=== PATIENT | female | born 1985 | race Caucasian/White ===

== ENCOUNTER → 2018-01-06 09:43 | Outpatient (CLI) | payer MEDICAID, SELFPAY ==
[2018-01-06 09:46] LABS: Microscopic, Urine URINE MICROSCOPIC (MICROSCOPIC)
[2018-01-06 10:20] LABS: Appearance,Urine CLEAR (Clear); Bilirubin,Urine Negative (Negative); Blood, Urine Negative (Negative); Color,Urine YELLOW (Yellow); Glucose,Urine (UA) Negative (Negative); Ketones,Urine Negative (Negative); Leukocyte Esterase,Urine Negative (Negative); Nitrate,Urine Negative (Negative); Protein,Urine Negative (Negative); Specific Gravity, Urine >= 1.030 (1.005-1.030); Urobilinogen,Urine 0.2 EU/dl (0.2)
[2018-01-06 10:22] LABS: Urine Pregnancy, HCG Qual. Negative (Negative)
[2018-01-06 10:27] LABS: Bacteria,Urine 1+ /lpf
[2018-01-06 10:31] LABS: Basophils % 0.4 % (0.1-2.0); Eosinophils # 0.1 K/mm3 (0.0-0.4); Eosinophils % 1.5 % (0.1-12.0); Hematocrit 33.3 % (37.0-47.0); Hemoglobin 11.1 g/dL (12.2-16.2); Lymphocytes # 1.6 K/mm3 (0.7-4.5); Lymphocytes % 28.7 K/mm3 (10-50); Mean Corpuscular HGB Conc 33.4 g/dL (31.8-35.4); Mean Corpuscular Hemoglobin 28.8 pg (27.0-31.2); Mean Corpuscular Volume 86.3 fl (81-99); Mean Platelet Volume 7.9 fl (7.4-10.4); Monocytes # 0.3 K/mm3 (0.1-1.0); Monocytes % 4.6 % (1.7-9.3); Neutrophils # 3.5 K/mm3 (1.8-7.8); Neutrophils % 64.8 % (37.0-80.0); Platelet Count 209 K/mm3 (142-424); Red Blood Count 3.86 M/mm3 (4.20-5.40); Red Cell Distribution Width 12.4 % (11.5-17.5); White Blood Count 5.4 K/mm3 (4.8-10.8)
[2018-01-06 12:12] LABS: Alanine Aminotransferase 20 U/L (12-78); Albumin Level 3.7 gm/dL (3.4-5.0); Albumin/Globulin Ratio 1.1 (1.1-1.8); Alkaline Phosphatase 77 U/L (46-116); Aspartate Amino Transferase 16 U/L (15-37); Bilirubin,Total 0.3 mg/dL (0.2-1.0); Blood Urea Nitrogen 17 mg/dL (7-18); Calcium 8.9 mg/dL (8.5-10.1); Carbon Dioxide 29 mmol/L (21.0-32.0); Chloride 105 mmol/L (98-107); Creatinine,Serum 1.05 mg/dL (0.55-1.02); Estimated Glomerular Filt Rate 62 ml/min (>60); GFR (African American) 74 ML/MIN (>60); Globulin 3.3 gm/dl (1.3-3.2); Glucose 77 mg/dL (74-106); Sodium 141 mmol/L (136-145)
== END ==
PROVIDERS: Visit Provider Obstetrics & Gynecology
DX: Z01.818 Encounter for other preprocedural examination (principal); R10.2 Pelvic and perineal pain; N73.6 Female pelvic peritoneal adhesions (postinfective)
CPT/HCPCS: 36415; 80053; 81001; 81025; 85025

== ENCOUNTER → 2018-04-14 13:43 | Outpatient (CLI) | payer MEDICAID, SELFPAY ==
[2018-04-14 14:22] LABS: Activated Partial Thrombo Time 27.8 seconds (23.6-34.0)
== END ==
PROVIDERS: PCP Family Medicine; Visit Provider Family Medicine
DX: R23.8 Other skin changes (principal)
CPT/HCPCS: 36415; 85730

== ENCOUNTER → 2020-08-22 15:35 | Outpatient (CLI) | payer OTHER, SELFPAY ==
[2020-08-22 16:21] LABS: Basophils # 0.1 K/mm3 (0-0.2); Basophils % 0.9 % (0.1-2.0); Eosinophils # 0.1 K/mm3 (0.0-0.4); Eosinophils % 1.1 % (0.1-12.0); Hematocrit 37.3 % (37.0-47.0); Hemoglobin 12.7 g/dL (12.2-16.2); Lymphocytes % 37.3 % (10-50); Mean Corpuscular HGB Conc 34.2 g/dL (31.8-35.4); Mean Corpuscular Hemoglobin 29.7 pg (27.0-31.2); Mean Corpuscular Volume 86.9 fl (81-99); Mean Platelet Volume 7.7 fl (7.4-10.4); Monocytes # 0.2 K/mm3 (0.1-1.0); Neutrophils % 56.7 % (37.0-80.0); Platelet Count 292 K/mm3 (142-424); Red Cell Distribution Width 13.5 % (11.5-17.5); White Blood Count 5.2 K/mm3 (4.8-10.8)
[2020-08-22 17:50] LABS: Strep Scrn Group A (Rapid) Negative (Negative)
== END ==
PROVIDERS: PCP Family Medicine; Visit Provider Nurse Practitioner Family
DX: J02.9 Acute pharyngitis, unspecified; Z20.822 Contact with and (suspected) exposure to COVID-19
CPT/HCPCS: 85025; 87430; U0003

== ENCOUNTER → 2020-09-26 11:40 | Outpatient (CLI) | payer OTHER, SELFPAY ==
[2020-09-26 12:41] LABS: Basophils % 0.6 % (0.1-2.0); Eosinophils # 0.1 K/mm3 (0.0-0.4); Eosinophils % 1.4 % (0.1-12.0); Hematocrit 36.3 % (37.0-47.0); Hemoglobin 11.7 g/dL (12.2-16.2); Lymphocytes # 1.4 K/mm3 (0.7-4.5); Lymphocytes % 31.7 % (10-50); Mean Corpuscular HGB Conc 32.1 g/dL (31.8-35.4); Mean Corpuscular Hemoglobin 28.3 pg (27.0-31.2); Mean Corpuscular Volume 87.9 fl (81-99); Mean Platelet Volume 7.7 fl (7.4-10.4); Monocytes # 0.2 K/mm3 (0.1-1.0); Monocytes % 4.7 % (1.7-9.3); Neutrophils # 2.8 K/mm3 (1.8-7.8); Neutrophils % 61.6 % (37.0-80.0); Platelet Count 264 K/mm3 (142-424); Red Blood Count 4.13 M/mm3 (4.20-5.40); Red Cell Distribution Width 12.8 % (11.5-17.5); White Blood Count 4.6 K/mm3 (4.8-10.8)
[2020-09-26 14:40] LABS: Strep Scrn Group A (Rapid) Negative (Negative)
== END ==
PROVIDERS: PCP Family Medicine; Visit Provider Nurse Practitioner Family
DX: Z20.822 Contact with and (suspected) exposure to COVID-19 (principal)
CPT/HCPCS: 36415; 85025; 87430; U0003

== ENCOUNTER → 2020-12-05 11:03 | Outpatient (CLI) | payer OTHER, SELFPAY ==
--- NOTE | 2020-12-05 | XR_ITS ---
PROCEDURE: XR ANKLE LT MIN 3V CLINICAL INDICATION: ANKLE PAIN COMPARISON: No exams were available for comparison FINDINGS: No fracture or dislocation. No lytic or blastic change. There is normal mineralization. The joint spaces are well-preserved. No significant degenerative/arthritic changes. No erosive changes evident. Other findings:None. IMPRESSION: No acute findings. Dictated by: José Luis Lai MD 12/05/2020 17:41 José Luis Lai MD in [place] 12/05/2020 17:41
--- NOTE | 2020-12-05 | XR_ITS ---
PROCEDURE: XR FOOT LT MIN 3V CLINICAL INDICATION: FOOT PAIN COMPARISON: CR FTL3 FOOT-LT-3 VIEWS from 01/09/2014 FINDINGS: No fracture or dislocation. No lytic or blastic change. There is normal mineralization. The joint spaces are well-preserved. No significant degenerative/arthritic changes. No erosive changes evident. Other findings:None. IMPRESSION: No acute findings. Dictated by: José Luis Lai MD 12/05/2020 17:37 José Luis Lai MD in [place] 12/05/2020 17:37
== END ==
PROVIDERS: PCP Nurse Practitioner Family; Visit Provider Nurse Practitioner Family
DX: M79.672 Pain in left foot (principal); M25.572 Pain in left ankle and joints of left foot
CPT/HCPCS: 73610; 73630

== ENCOUNTER → 2021-01-23 12:11 | Outpatient (CLI) | payer OTHER, SELFPAY ==
[2021-01-23 12:49] LABS: Basophils % 0.6 % (0.1-2.0); Eosinophils # 0.1 K/mm3 (0.0-0.4); Eosinophils % 1.4 % (0.1-12.0); Hematocrit 35.5 % (37.0-47.0); Hemoglobin 12.2 g/dL (12.2-16.2); Lymphocytes # 1.7 K/mm3 (0.7-4.5); Lymphocytes % 30.2 % (10-50); Mean Corpuscular HGB Conc 34.4 g/dL (31.8-35.4); Mean Corpuscular Hemoglobin 29.1 pg (27.0-31.2); Mean Corpuscular Volume 84.6 fl (81-99); Mean Platelet Volume 8.3 fl (7.4-10.4); Monocytes # 0.2 K/mm3 (0.1-1.0); Monocytes % 3.7 % (1.7-9.3); Neutrophils # 3.6 K/mm3 (1.8-7.8); Neutrophils % 64.2 % (37.0-80.0); Platelet Count 249 K/mm3 (142-424); Red Cell Distribution Width 12.7 % (11.5-17.5); White Blood Count 5.6 K/mm3 (4.8-10.8)
[2021-01-23 12:59] LABS: Strep Scrn Group A (Rapid) Negative (Negative)
== END ==
PROVIDERS: PCP Family Medicine; Visit Provider Family Medicine
DX: Z20.822 Contact with and (suspected) exposure to COVID-19 (principal); J02.9 Acute pharyngitis, unspecified
CPT/HCPCS: 36415; 85025; 87430; U0003

== ENCOUNTER → 2021-02-23 15:38 | Outpatient (CLI) | payer OTHER, SELFPAY ==
[2021-02-23 16:15] LABS: Adenovirus,PCR Not Detected (NotDetected); Bordetella Pertussis Not Detected (NotDetected); Chlamydophila Pneumoniae, PCR Not Detected (NotDetected); Coronavirus 19, PCR Not Detected (NotDetected); Coronavirus 229E Not Detected (NotDetected); Coronavirus NL63 Not Detected (NotDetected); Coronavirus OC43 Not Detected (NotDetected); Coronovirus HKU1,PCR Not Detected (NotDetected); Human Metapneumovirus Not Detected (NotDetected); Influenza A, PCR Not Detected (NotDetected); Influenza AH1, 2009 Not Detected (NotDetected); Influenza AH1, PCR Not Detected (NotDetected); Influenza AH3,PCR Not Detected (NotDetected); Influenza B, PCR Not Detected (NotDetected); Mycoplasma Pneumoniae, PCR Not Detected (NotDetected); Parainfluenza 1, PCR Not Detected (NotDetected); Parainfluenza 2, PCR Not Detected (NotDetected); Parainfluenza 3, PCR Not Detected (NotDetected); Parainfluenza 4, PCR Not Detected (NotDetected); Respiratory Syncytial Virus Not Detected (NotDetected); Rhinovirus/Enterovirus Not Detected (NotDetected)
[2021-02-23 16:21] LABS: Basophils % 0.2 % (0.1-2.0); Eosinophils # 0.1 K/mm3 (0.0-0.4); Eosinophils % 1.9 % (0.1-12.0); Hematocrit 35.5 % (37.0-47.0); Hemoglobin 12.2 g/dL (12.2-16.2); Lymphocytes # 1.4 K/mm3 (0.7-4.5); Lymphocytes % 27.1 % (10-50); Mean Corpuscular HGB Conc 34.5 g/dL (31.8-35.4); Mean Corpuscular Hemoglobin 28.8 pg (27.0-31.2); Mean Corpuscular Volume 83.5 fl (81-99); Mean Platelet Volume 7.9 fl (7.4-10.4); Monocytes # 0.2 K/mm3 (0.1-1.0); Monocytes % 4.5 % (1.7-9.3); Neutrophils # 3.5 K/mm3 (1.8-7.8); Neutrophils % 66.2 % (37.0-80.0); Platelet Count 239 K/mm3 (142-424); Red Blood Count 4.25 M/mm3 (4.20-5.40); Red Cell Distribution Width 12.9 % (11.5-17.5); White Blood Count 5.3 K/mm3 (4.8-10.8)
== END ==
PROVIDERS: PCP Physician Assistant; Visit Provider Physician Assistant
DX: Z20.822 Contact with and (suspected) exposure to COVID-19 (principal)
CPT/HCPCS: 85025; 87581; 87633; 87798

== ENCOUNTER → 2021-03-01 11:30 | Outpatient (CLI) | payer OTHER, SELFPAY ==
--- NOTE | 2021-03-01 11:36 | XR_ITS ---
PROCEDURE: XR CHEST PORTABLE CLINICAL HISTORY: COVID OUTPATIENT COMPARISON: No exams were available for comparison FINDINGS: The cardiomediastinal silhouette and pulmonary vascularity are within normal limits. The lungs are clear without infiltrates, suspicious nodules, or pleural effusions. No acute bony abnormalities. IMPRESSION: No acute findings. Dictated by: José Luis Lai MD 03/01/2021 12:22 José Luis Lai MD in [place] 03/01/2021 12:22
[2021-03-01 12:24] LABS: Basophils % 0.7 % (0.1-2.0); Eosinophils # 0.1 K/mm3 (0.0-0.4); Eosinophils % 1.6 % (0.1-12.0); Hematocrit 34.3 % (37.0-47.0); Lymphocytes # 1.6 K/mm3 (0.7-4.5); Lymphocytes % 28.4 % (10-50); Mean Corpuscular HGB Conc 35.1 g/dL (31.8-35.4); Mean Corpuscular Hemoglobin 28.8 pg (27.0-31.2); Mean Platelet Volume 7.8 fl (7.4-10.4); Monocytes # 0.2 K/mm3 (0.1-1.0); Monocytes % 3.1 % (1.7-9.3); Neutrophils # 3.7 K/mm3 (1.8-7.8); Neutrophils % 66.1 % (37.0-80.0); Platelet Count 246 K/mm3 (142-424); Red Blood Count 4.18 M/mm3 (4.20-5.40); Red Cell Distribution Width 12.9 % (11.5-17.5); White Blood Count 5.6 K/mm3 (4.8-10.8)
--- NOTE | 2021-03-01 13:03 | PC.NURSE ---
ER REGISTRATION CALLED RESPIRATORY TO COME AND CHECK PT'S O2 SATS. PTS PULSE OX WAS READING 100% AT THIS TIME.
== END ==
PROVIDERS: PCP Physician Assistant; Visit Provider Physician Assistant
DX: Z20.822 Contact with and (suspected) exposure to COVID-19 (principal)
CPT/HCPCS: 36415; 71045; 85025; U0003

== ENCOUNTER → 2021-04-13 15:33 | Outpatient (CLI) | payer OTHER, SELFPAY ==
[2021-04-13 17:06] LABS: Basophils % 0.7 % (0.1-2.0); Eosinophils # 0.1 K/mm3 (0.0-0.4); Hematocrit 37.1 % (37.0-47.0); Hemoglobin 12.1 g/dL (12.2-16.2); Lymphocytes # 1.4 K/mm3 (0.7-4.5); Lymphocytes % 29.1 % (10-50); Mean Corpuscular HGB Conc 32.6 g/dL (31.8-35.4); Mean Corpuscular Hemoglobin 29.3 pg (27.0-31.2); Mean Corpuscular Volume 90.1 fl (81-99); Mean Platelet Volume 8.3 fl (7.4-10.4); Monocytes # 0.3 K/mm3 (0.1-1.0); Monocytes % 5.9 % (1.7-9.3); Neutrophils # 3.1 K/mm3 (1.8-7.8); Neutrophils % 63.3 % (37.0-80.0); Platelet Count 258 K/mm3 (142-424); Red Blood Count 4.11 M/mm3 (4.20-5.40); Red Cell Distribution Width 12.9 % (11.5-17.5); White Blood Count 4.9 K/mm3 (4.8-10.8)
[2021-04-13 18:14] LABS: Strep Scrn Group A (Rapid) Negative (Negative)
== END ==
PROVIDERS: PCP Family Medicine; Visit Provider Physician Assistant
DX: Z20.822 Contact with and (suspected) exposure to COVID-19 (principal); J02.9 Acute pharyngitis, unspecified
CPT/HCPCS: 85025; 87430; U0003

== ENCOUNTER → 2021-08-28 11:43 | Outpatient (CLI) | payer OTHER, SELFPAY ==
[2021-08-28 12:17] LABS: Adenovirus,PCR Not Detected (NotDetected); Bordetella Pertussis Not Detected (NotDetected); Chlamydophila Pneumoniae, PCR Not Detected (NotDetected); Coronavirus 19, PCR Not Detected (NotDetected); Coronavirus 229E Not Detected (NotDetected); Coronavirus NL63 Not Detected (NotDetected); Coronavirus OC43 Not Detected (NotDetected); Coronovirus HKU1,PCR Not Detected (NotDetected); Human Metapneumovirus Not Detected (NotDetected); Influenza A, PCR Not Detected (NotDetected); Influenza AH1, 2009 Not Detected (NotDetected); Influenza AH1, PCR Not Detected (NotDetected); Influenza AH3,PCR Not Detected (NotDetected); Influenza B, PCR Not Detected (NotDetected); Mycoplasma Pneumoniae, PCR Not Detected (NotDetected); Parainfluenza 1, PCR Not Detected (NotDetected); Parainfluenza 2, PCR Not Detected (NotDetected); Parainfluenza 3, PCR Not Detected (NotDetected); Parainfluenza 4, PCR Not Detected (NotDetected); Respiratory Syncytial Virus Not Detected (NotDetected); Rhinovirus/Enterovirus Not Detected (NotDetected)
[2021-08-28 12:25] LABS: Basophils # 0.1 K/mm3 (0-0.2); Basophils % 1.4 % (0.1-2.0); Eosinophils # 0.1 K/mm3 (0.0-0.4); Eosinophils % 1.4 % (0.1-12.0); Hematocrit 36.5 % (37.0-47.0); Hemoglobin 12.2 g/dL (12.2-16.2); Lymphocytes # 1.6 K/mm3 (0.7-4.5); Lymphocytes % 28.7 % (10-50); Mean Corpuscular HGB Conc 33.4 g/dL (31.8-35.4); Mean Corpuscular Hemoglobin 29.4 pg (27.0-31.2); Mean Corpuscular Volume 88.2 fl (81-99); Mean Platelet Volume 8.5 fl (7.4-10.4); Monocytes # 0.2 K/mm3 (0.1-1.0); Neutrophils # 3.5 K/mm3 (1.8-7.8); Neutrophils % 64.5 % (37.0-80.0); Platelet Count 288 K/mm3 (142-424); Red Blood Count 4.14 M/mm3 (4.20-5.40); Red Cell Distribution Width 12.9 % (11.5-17.5); White Blood Count 5.5 K/mm3 (4.8-10.8)
[2021-08-28 12:57] LABS: Strep Scrn Group A (Rapid) Negative (Negative)
== END ==
PROVIDERS: PCP Nurse Practitioner Family; Visit Provider Nurse Practitioner Family
DX: Z20.822 Contact with and (suspected) exposure to COVID-19 (principal); J02.9 Acute pharyngitis, unspecified
CPT/HCPCS: 36415; 85025; 87430; 87581; 87632; 87798; C9803; U0003; U0005

== ENCOUNTER → 2021-09-06 10:26 | Outpatient (CLI) | payer OTHER, SELFPAY ==
[2021-09-06 11:07] LABS: Adenovirus,PCR Not Detected (NotDetected); Bordetella Pertussis Not Detected (NotDetected); Chlamydophila Pneumoniae, PCR Not Detected (NotDetected); Coronavirus 229E Not Detected (NotDetected); Coronavirus NL63 Not Detected (NotDetected); Coronavirus OC43 Not Detected (NotDetected); Coronovirus HKU1,PCR Not Detected (NotDetected); Human Metapneumovirus Not Detected (NotDetected); Influenza A, PCR Not Detected (NotDetected); Influenza AH1, 2009 Not Detected (NotDetected); Influenza AH1, PCR Not Detected (NotDetected); Influenza AH3,PCR Not Detected (NotDetected); Influenza B, PCR Not Detected (NotDetected); Mycoplasma Pneumoniae, PCR Not Detected (NotDetected); Parainfluenza 1, PCR Not Detected (NotDetected); Parainfluenza 2, PCR Not Detected (NotDetected); Parainfluenza 3, PCR Not Detected (NotDetected); Parainfluenza 4, PCR Not Detected (NotDetected); Respiratory Syncytial Virus Not Detected (NotDetected); Rhinovirus/Enterovirus Not Detected (NotDetected)
[2021-09-06 11:18] LABS: Basophils % 0.6 % (0.1-2.0); Eosinophils % 0.8 % (0.1-12.0); Hematocrit 35.6 % (37.0-47.0); Lymphocytes # 1.3 K/mm3 (0.7-4.5); Lymphocytes % 32.1 % (10-50); Mean Corpuscular HGB Conc 33.6 g/dL (31.8-35.4); Mean Corpuscular Hemoglobin 29.6 pg (27.0-31.2); Mean Corpuscular Volume 88.1 fl (81-99); Mean Platelet Volume 8.3 fl (7.4-10.4); Monocytes # 0.4 K/mm3 (0.1-1.0); Monocytes % 9.5 % (1.7-9.3); Neutrophils # 2.4 K/mm3 (1.8-7.8); Platelet Count 248 K/mm3 (142-424); Red Blood Count 4.05 M/mm3 (4.20-5.40); Red Cell Distribution Width 12.9 % (11.5-17.5); White Blood Count 4.2 K/mm3 (4.8-10.8)
[2021-09-06 13:14] LABS: Coronavirus 19, PCR Detected (NotDetected)
[2021-09-06 13:42] LABS: Strep Scrn Group A (Rapid) Negative (Negative)
== END ==
PROVIDERS: PCP Family Medicine; Visit Provider Nurse Practitioner Family
DX: U07.1 COVID-19 (principal)
CPT/HCPCS: 36415; 85025; 87430; 87581; 87632; 87798; C9803; U0003; U0005

== ENCOUNTER → 2022-05-18 14:07 | Outpatient (CLI) | payer OTHER, SELFPAY ==
--- NOTE | 2022-05-18 14:12 | XR_ITS ---
FINAL REPORT CLINICAL HISTORY: INJURY OF RIGHT KNEE, pain FINDINGS: 3 views of the right knee were obtained. Healing fibrous cortical defect in the distal femur. There is no acute fracture or dislocation. The joint spaces are intact. There is no soft tissue abnormality. IMPRESSION: No acute process. Reviewed, Interpreted and Dictated by Pillo Esposito MD Transcribed by Caio Jones Authenticated and [facility]
== END ==
PROVIDERS: PCP Family Medicine; Visit Provider Physician Assistant
DX: M25.561 Pain in right knee (principal); S89.91XA Unspecified injury of right lower leg, initial encounter
CPT/HCPCS: 73562

== ENCOUNTER → 2022-07-25 12:42 | Outpatient (CLI) | payer OTHER, SELFPAY ==
--- NOTE | 2022-07-25 12:43 | MR_ITS ---
FINAL REPORT CLINICAL HISTORY: knee pain right knee pain after dog running into knee in april pain when walking and gives out FINDINGS: Multiplanar MR imaging of the right knee was performed without contrast. The medial and lateral menisci are intact without evidence of meniscal tear. The anterior and posterior cruciate ligaments are intact. The medial collateral ligament and lateral ligamentous complex are intact. The patellar and quadriceps tendons are intact. There is no evidence of fracture. No focal abnormality is identified of the articular cartilage. There is a 29 mm mass in the posterior medial distal femur, favor nonossifying fibroma or other benign process. Small joint effusion is seen. The musculature is intact. No soft tissue mass or cyst is identified. 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 Reviewed, Interpreted and Dictated by Chris Eid III, MD Transcribed by Willa Jacques Authenticated and [facility]
== END ==
PROVIDERS: PCP Family Medicine; Visit Provider Orthopaedic Surgery
DX: M25.561 Pain in right knee (principal); M23.91 Unspecified internal derangement of right knee
CPT/HCPCS: 73721

== ENCOUNTER → 2022-11-21 09:41 | Outpatient (CLI) | payer OTHER, SELFPAY ==
--- NOTE | 2022-11-21 09:41 | US_ITS ---
PROCEDURE INFORMATION: Exam: US Left Breast, Complete Exam date and time: 11/21/2022 10:18 AM Age: 37 years old Clinical indication: Breast pain; Left TECHNIQUE: Imaging protocol: Complete ultrasound of all four quadrants of the left breast and the retroareolar regions, including ultrasound of the axilla when performed. COMPARISON: BL US BREAST-LT COMPLETE W/AXILLA 06/11/2016 2:22 PM FINDINGS: Breast: Sonographic images of the left breast including the retroareolar region, all 4 quadrants and the axilla do not demonstrate any solid or cystic masses. No architectural distortion or acoustical shadowing. No skin thickening or axillary adenopathy. IMPRESSION: No mammographic evidence of malignancy. Annual bilateral mammographic screening is recommended to commence at the age of 40 unless otherwise clinically indicated. ASSESSMENT: BI-RADS Category 1: Negative
== END ==
LOC: RAD 09:41
PROVIDERS: PCP Family Medicine; Visit Provider Obstetrics & Gynecology
DX: N64.4 Mastodynia (principal)
CPT/HCPCS: 76641

== ENCOUNTER → 2022-12-05 10:56 | Outpatient (CLI) | payer OTHER, SELFPAY ==
[2022-12-05 11:22] LABS: Influenza A, PCR Not Detected (NotDetected); Influenza B, PCR Not Detected (NotDetected)
[2022-12-05 13:46] LABS: Coronavirus 19, PCR Detected (NotDetected)
== END ==
PROVIDERS: PCP Family Medicine; Visit Provider Physician Assistant
DX: U07.1 COVID-19 (principal)
CPT/HCPCS: C9803; U0003; U0005

== ENCOUNTER → 2023-04-03 11:05 | Outpatient (CLI) | payer OTHER, SELFPAY ==
--- NOTE | 2023-04-03 11:10 | XR_ITS ---
FINAL REPORT CLINICAL HISTORY: INJURY FINDINGS: Right foot Three views were obtained. There is no acute fracture or dislocation. The joint spaces appear normal. No soft tissue abnormality is identified. IMPRESSION: No acute process. Reviewed, Interpreted and Dictated by Chris Eid III, MD Transcribed by Willa Jacques Authenticated and [facility]
--- NOTE | 2023-04-03 11:10 | XR_ITS ---
FINAL REPORT CLINICAL HISTORY: INJURY FINDINGS: Right ankle Three views were obtained. There is no acute fracture or dislocation. The joint spaces appear normal. No soft tissue abnormality is identified. IMPRESSION: No acute process. Reviewed, Interpreted and Dictated by Chris Eid III, MD Transcribed by Willa Jacques Authenticated and . [facility]
== END ==
PROVIDERS: PCP Family Medicine; Visit Provider Physician Assistant
DX: M79.671 Pain in right foot (principal); M25.572 Pain in left ankle and joints of left foot; S99.911A Unspecified injury of right ankle, initial encounter
CPT/HCPCS: 73610; 73630

== ENCOUNTER 2023-10-30 17:05 | Emergency (ER) | payer OTHER, SELFPAY ==
[2023-10-30 17:50] VITALS: BP 113/65; PULSE 79; RESP 18; TEMP 36.7; O2SAT 100; BMI 30.1
--- NOTE | 2023-10-30 18:07 | ED_ITS ---
Discharge Plan Disposition Patient Disposition: Home, Self-Care Condition: Good Prescriptions Prescriptions: New azithromycin [Zithromax] 250 mg tablet 250 mg PO UD DOSE PK Qty: 6 0RF Rx Instructions: Take two (2) tablets today, then one (1) tablet days #2 thru #5 benzonatate 100 mg capsule 100 mg PO TIDP PRN (Reason: Cough) Qty: 30 0RF oseltamivir [Tamiflu] 75 mg capsule 75 mg PO BID Qty: 10 0RF methylprednisolone 4 mg Tablets,Dose Pack 4 mg PO DIRECTED 6 Days Qty: 21 0RF Rx Instructions: Take 1 pack as directed for 6 days ondansetron 4 mg Tablet,Disintegrating 4 mg PO Q8H PRN (Reason: Nausea) Qty: 9 0RF No Action Breo Ellipta 100-25 mcg/dose blister with device 1 inh INHALATION DAILY albuterol sulfate [Ventolin HFA] 90 mcg/actuation HFA aerosol inhaler 1 inh INHALATION QID duloxetine 30 mg capsule,delayed release(DR/EC) 60 mg PO DAILY metoprolol succinate 50 mg tablet extended release 24 hr 50 mg PO DAILY estradiol [Estrace] 2 mg tablet 2 mg PO DAILY Qty: 30 11RF aripiprazole 10 mg tablet 10 mg PO DAILY Patient Comments: TAKE 1 TABLET BY MOUTH EVERY DAY AT BEDTIME FOR 90 DAYS Referrals Follow up/Referrals: Tonio Jenkins MD [Primary Care Provider] - See instructions Activity Restrictions/Add. Instructions Additional Instructions/Restrictions: Drink plenty of fluids. Take tylenol or ibuprofen for pain or fever. Take the medications as directed. Follow up with your regular doctor. GO TO THE ER FOR ANY WORSENING SYMPTOMS Clinical Impressions Clinical Impression: Influenza B, Pharyngitis, Exposure to strep throat Instructions Patient Instructions: Influenza, DI for Strep Throat, DI for Influenza -- Adult Discharge ED Provider: [place] Schaffer [facility] [place] HPI General Stated complaint: fever,chills, body aches Time Seen by Provider: 10/30/23 18:07 History of Present Illness Provider Complaint: She states that for the past 2 days she has had very sore throat, body aches, malaise, low grade fever, and cough. Related Data Home Medications Medication Instructions Recorded Confirmed fluticasone furoate 100 1 inh inhalation DAILY 04/17/19 10/30/22 mcg-vilanterol 25 mcg/dose inhalation powder (Breo Ellipta) albuterol sulfate 90 mcg/actuation 1 inh inhalation QID 06/16/20 10/30/23 aerosol inhaler (Ventolin HFA) duloxetine 30 mg capsule,delayed 60 mg PO DAILY 10/30/22 10/30/23 release metoprolol succinate 50 mg 50 mg PO DAILY 10/30/22 10/30/23 tablet,extended release 24 hr aripiprazole 10 mg tablet 10 mg PO DAILY 10/30/23 10/30/23 Previous Rx's Medication Instructions Recorded estradiol 2 mg tablet (Estrace) 2 mg PO DAILY #30 tabs 10/30/22 azithromycin 250 mg tablet 250 mg PO UD DOSE PK #6 tabs 10/30/23 (Zithromax) benzonatate 100 mg capsule 100 mg PO TIDP PRN Cough #30 caps 10/30/23 methylprednisolone 4 mg tablets in 4 mg PO DIRECTED 6 days #21 tabs 10/30/23 a dose pack ondansetron 4 mg disintegrating 4 mg PO Q8H PRN Nausea #9 tabs 10/30/23 tablet oseltamivir 75 mg capsule (Tamiflu) 75 mg PO BID #10 caps 10/30/23 Allergies Allergy/AdvReac Type Severity Reaction Status Date / Time amoxicillin [From Augmentin] Allergy Intermediate I-RASH Verified 10/30/23 18:20 clavulanic acid Allergy Intermediate I-RASH Verified 10/30/23 18:20 [From Augmentin] banana Allergy Mild THROAT Verified 10/30/23 18:20 [From BANANAS (FOOD/DRUG)] SWELLS shellfish derived Allergy Mild ON SKIN Verified 10/30/23 18:20 [From SHELLFISH (FOOD/DRUG)] TEST ONLY (CRABMEAT) strawberry Allergy Mild THROAT Verified 10/30/23 18:20 [From STRAWBERRIES SWELLS (FOOD/DRUG)] ketorolac [From TORADOL] Allergy Unknown NA-NAUSEA/V Verified 10/30/23 18:20 OMITING PFSH PFSH Disclaimer: The information contained in this section may have been updated after the patient was seen, as this information can be updated by other users. 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 current occupational exposures/hazards: No caffeine: Yes ROS Obtained: Yes All systems reviewed & no additional complaints except as documented Constitutional Constitutional: Reports chills and Reports fever(s) Eyes Eyes: Denies eye discharge ENT Ears, Nose, Mouth, and Throat: Reports as per HPI Cardiovascular Cardiovascular: Denies chest pain Respiratory Respiratory: Denies chest congestion and Reports cough Gastrointestinal Gastrointestingal: Reports nausea; Denies abdominal pain, constipation, cramping, diarrhea or vomiting Musculoskeletal Musculoskeletal: Denies arthralgias Integumentary/Breasts Skin/Breast: Denies rash Neurologic Neurologic: Denies paresthesias Physical Exam General General appearance: alert and in no apparent distress Head Head exam: atraumatic, normocephalic and normal inspection Eye Eye exam: Present normal appearance, PERRL and EOMI ENT ENT exam: Present mucous membranes moist and normal external ear exam Expanded ENT Exam TM/Canal exam: Bilateral TM: erythema and bulging Nose exam: Absent sinus tenderness Mouth exam: Present normal external inspection; Absent drooling Teeth exam: Present normal inspection Throat exam: Present tonsillar erythema, tonsillomegaly and tonsillar exudate Neck Neck exam: Present normal inspection, full ROM and trachea midline; Absent tenderness, meningismus or lymphadenopathy Chest Chest inspection: Present normal inspection and symmetric chest wall rise; Absent tenderness Respiratory Respiratory exam: Present normal lung sounds bilaterally; Absent respiratory distress, wheezes, stridor or accessory muscle use Cardiovascular Cardiovascular exam: Present regular rate and normal rhythm; Absent systolic murmur or diastolic murmur Abdominal Exam Abdominal exam: Present soft and normal bowel sounds; Absent distention, tenderness, guarding, rebound or rigidity Extremities Exam Extremities exam: Present normal inspection and normal capillary refill; Absent calf tenderness Back Exam Back exam: Present normal inspection and full ROM; Absent tenderness, CVA tenderness (R) or CVA tenderness (L) Neurological Exam Neurological exam: Present alert, oriented X3 and CN II-XII intact Psychiatric Psychiatric exam: Present normal affect and normal mood Skin Skin exam: Present warm, dry, intact and normal color Medical Decision Making Medical Records Medical records reviewed: No I reviewed the patient's medical records. Anam Inquiry Pt receiving controlled substance: No Lab Data Lab results reviewed: Yes I reviewed the patient's lab results.
[2023-10-30 18:21] LABS: UTC Influenza A Antigen Negative (Negative); UTC Influenza B Antigen Positive (Negative); UTC Strep Screen (Rapid) Negative (Negative)
[2023-10-30 18:39] VITALS: BP 113/65; PULSE 79; RESP 18; TEMP 36.7; O2SAT 100
== END 2023-10-30 18:39 | disposition home or self-care (01) ==
PROVIDERS: Emergency Provider Nurse Practitioner Family; PCP Family Medicine
DX: J10.1 Influenza due to other identified influenza virus with other respiratory manifestations (principal); R07.0 Pain in throat; R53.81 Other malaise; R50.9 Fever, unspecified; R05.9 Cough, unspecified
CPT/HCPCS: 87804; 87880; 99204; 99212; G0463

== ENCOUNTER 2023-12-23 08:51 | Outpatient (CLI) | payer OTHER, SELFPAY ==
--- NOTE | 2023-12-23 08:51 | XR_ITS ---
FINAL REPORT TECHNIQUE: Bone mineral density was calculated of the lumbar spine and hip. CLINICAL HISTORY: early menopause under the age of 30 COMPARISON: None FINDINGS: Using L1-4, the bone mineral density of the spine is 0.987 g/cm2, corresponding to T-score of -0.5. Using the left hip, the bone mineral density of the femoral neck is 0.766 g/cm2, corresponding to a T-score of -0.7 Using the right hip, the bone mineral density of the femoral neck is 0.871 g/cm?, corresponding to a T-score of 0.2. NOTE: T-score: Standard deviation compared with peak bone mass of young adult mean. *Following the recommendations of the International Society of Bone densitometry, classification of hip BMD is based on the lower of two T-scores; total hip or femoral neck. IMPRESSION: Normal bone mineral density of the lumbar spine and bilateral hips. Reviewed, Interpreted and Dictated by Chris Eid III, MD Transcribed by Chelsey Keating Authenticated and [facility]
== END 2023-12-23 23:59 | disposition home or self-care (01) ==
LOC: RAD 08:51
PROVIDERS: PCP Family Medicine; Visit Provider Obstetrics & Gynecology
DX: E28.319 Asymptomatic premature menopause (principal)
CPT/HCPCS: 77080

== ENCOUNTER 2024-01-29 14:18 | Outpatient (CLI) | payer OTHER, SELFPAY ==
--- NOTE | 2024-01-29 14:19 | MR_ITS ---
FINAL REPORT CLINICAL HISTORY: Rt Knee pain COMPARISON: July 25, 2022 MRI FINDINGS: Multiplanar MR imaging of the right knee was performed without contrast. Many of the images are degraded by motion artifact. The medial and lateral menisci are intact without evidence of meniscal tear. The anterior and posterior cruciate ligaments are intact. The medial collateral ligament and lateral ligamentous complex are intact. The patellar and quadriceps tendons are intact. A focal area of bone bruising/marrow edema is seen at the medial aspect of the patella with overlying moderate chondromalacia versus focal cartilage injury. These findings are well-visualized on axial images 7-8. Also noted is a small osteochondral lesion of the medial aspect of the trochlea seen on sagittal T2 images 13-14 with mild bone marrow edema in this region. There is some stranding and irregularity at the patellar attachment of the medial patellofemoral ligament likely representing a partial tear. A partially imaged mass is seen in the posterior distal femur. The visualized portion of the mass is stable and likely represents a nonossifying fibroma. A small joint effusion is seen. The musculature is intact. No soft tissue mass or cyst is identified. IMPRESSION: No evidence of meniscal or ligamentous injury. Focal bone bruising/marrow edema with overlying cartilage loss of the medial patella which may represent direct injury. Small osteochondral lesion of the medial trochlea. Findings consistent with a partial tear at the patellar attachment of the medial patellofemoral ligament. Stable partially imaged mass in the distal femur, favoring nonossifying fibroma. Authenticated and [facility]
== END 2024-01-29 23:59 | disposition home or self-care (01) ==
LOC: RAD 14:19
PROVIDERS: PCP Family Medicine; Visit Provider Orthopaedic Surgery
DX: M25.561 Pain in right knee (principal); M23.91 Unspecified internal derangement of right knee
CPT/HCPCS: 73721

== ENCOUNTER 2024-03-17 16:08 | Emergency (ER) | payer OTHER, SELFPAY ==
[2024-03-17 16:20] VITALS: BP 126/76; PULSE 76; RESP 20; TEMP 36.8; O2SAT 96; BMI 31.1
[2024-03-17 16:35] LABS: UTC Strep Screen (Rapid) Negative (Negative)
--- NOTE | 2024-03-17 17:26 | ED_ITS ---
Discharge Plan Disposition Patient Disposition: Home, Self-Care Condition: Good Prescriptions Prescriptions: New azithromycin [Zithromax Z-Nba] 250 mg tablet See Rx Instructions .ROUTE .COMPLEX 5 Days Qty: 6 0RF Rx Instructions: For 250 mg dose pack: take 500 mg today (day 1), then 250 mg for 4 days (days 2-5) benzonatate 100 mg capsule 100 mg PO TID PRN (Reason: cough) Qty: 30 0RF methylprednisolone [Medrol (Nba)] 4 mg tablets,dose pack See Rx Instructions .Route .COMPLEX 6 Days Qty: 21 0RF Rx Instructions: taper pack; No Action losartan 50 mg tablet 50 mg PO DAILY Patient Comments: TAKE 1 TABLET BY MOUTH ONCE DAILY FOR 90 DAYS metoprolol succinate 100 mg tablet extended release 24 hr 100 mg PO DAILY Patient Comments: TAKE 1 TABLET BY MOUTH ONCE DAILY estradiol 2 mg tablet 2 mg PO DAILY Patient Comments: TAKE 1 TABLET BY MOUTH ONCE DAILY estradiol 0.5 mg tablet 0.5 mg PO DAILY Patient Comments: TAKE 1 TABLET BY MOUTH ONCE DAILY aripiprazole 10 mg tablet 10 mg PO DAILY Patient Comments: TAKE 1 TABLET BY MOUTH ONCE DAILY AT BEDTIME duloxetine 60 mg capsule,delayed release(DR/EC) 60 mg PO DAILY Patient Comments: TAKE 2 CAPSULES BY MOUTH ONCE DAILY Referrals Follow up/Referrals: Tonio Jenkins MD [Primary Care Provider] - See instructions Activity Restrictions/Add. Instructions Additional Instructions/Restrictions: Monitor Temp, Over the counter Motrin or Tylenol as directed/as needed Tylenol every 4 hours and Motrin every 6 hours (as long as your family doctor has told you that you can take it) for fever or pain. and straight to ER if unable to lower temp less than 101.0 after medication given *Warm salt water gargles may help to soothe the throat *Throat Lozenges? *Warm fluids like tea with honey may help to soothe the throat? *Sleep elevated *Humidifier/Vaporizer *Your throat swab was sent for culture. Those results are typically sent to your primary care. Be sure to follow up in 2-3 days with your family doctor/primary care physician if no improvement so they can review those result and treat if necessary. If you don?t have a primary care doctor, I recommend you get one but in the mean time, you will have to return to a walk in clinic Follow up IMMEDIATELY for new or worsening symptoms or no Noticeable improvement over the next 48-72 hours. 911 for difficulty breathing or swallowing Clinical Impressions Clinical Impression: Sinusitis Instructions Patient Instructions: DI for Sinusitis, Sinusitis Print Language Print Language: Frisian Discharge ED Provider: Melissa Rodríguez [facility] [place] General Stated complaint: sore throat,cough,backache Mode of Arrival: Ambulatory Source of Information: Patient Limitations: No Limitations Time Seen by Provider: 03/17/24 17:26 Description of Symptoms (Recalled from Triage Doc. by RN): PATIENT C/O SORE THROAT, BODY ACHES AND COUGH X 2 DAYS HEENT Symptoms (Recalled from RN notes): Yes Resp Symptoms (Recalled from RN notes): Yes Skin Symptoms (Recalled from RN notes): No MS Symptoms (Recalled from RN notes): No Functional Status (Recalled from RN notes): WNL History of Present Illness Provider Complaint: Patient states that she has been having sore throat cough and sinus congestion and pressure for close to a week worse in the last couple of days states today she wasnt feeling any better so she came in to get checked not sure if it was sinuses or strep throat Related Data Home Medications ?Medication ?Instructions ?Recorded ?Confirmed aripiprazole 10 mg tablet 10 mg PO DAILY 03/17/24 03/17/24 duloxetine 60 mg capsule,delayed 60 mg PO DAILY 03/17/24 03/17/24 release estradiol 0.5 mg tablet 0.5 mg PO DAILY 03/17/24 03/17/24 estradiol 2 mg tablet 2 mg PO DAILY 03/17/24 03/17/24 losartan 50 mg tablet 50 mg PO DAILY 03/17/24 03/17/24 metoprolol succinate 100 mg 100 mg PO DAILY 03/17/24 03/17/24 tablet,extended release 24 hr Previous Rx's ?Medication ?Instructions ?Recorded azithromycin 250 mg tablet See Rx Instructions PO .COMPLEX 5 03/17/24 (Zithromax Z-Nba) days #6 tabs benzonatate 100 mg capsule 100 mg PO TID PRN cough #30 caps 03/17/24 methylprednisolone 4 mg tablets in See Rx Instructions .Route 03/17/24 a dose pack (Medrol (Nba)) .COMPLEX 6 days #21 tabs Allergies Allergy/AdvReac Type Severity Reaction Status Date / Time amoxicillin [From Augmentin] Allergy Intermediate I-RASH Verified 02/07/24 11:43 clavulanic acid Allergy Intermediate I-RASH Verified 02/07/24 11:43 [From Augmentin] banana Allergy Mild THROAT Verified 02/07/24 11:43 [From BANANAS (FOOD/DRUG)] SWELLS shellfish derived Allergy Mild ON SKIN Verified 02/07/24 11:43 [From SHELLFISH (FOOD/DRUG)] TEST ONLY (CRABMEAT) strawberry Allergy Mild THROAT Verified 02/07/24 11:43 [From STRAWBERRIES SWELLS (FOOD/DRUG)] ketorolac [From TORADOL] Allergy Unknown NA-NAUSEA/V Verified 02/07/24 11:43 OMITING Worker's Comp Is this a Worker's Comp case?: No [facility] Disclaimer: The information contained in this section may have been updated after the patient was seen, as this information can be updated by other users. 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 current occupational exposures/hazards: No caffeine: Yes ROS Obtained: Yes All systems reviewed & no additional complaints except as documented and Yes Systems reviewed as appropriate & no additional complaints except as documented Constitutional Constitutional: Reports system reviewed and no additional complaints, except as documented, Reports as per HPI and Reports headache(s) ENT Ears, Nose, Mouth, and Throat: Reports system reviewed and no additional complaints, except as documented, Reports as per HPI, Reports headache(s), Reports nasal congestion, Reports sinus pressure and Reports sore throat Cardiovascular Cardiovascular: Reports system reviewed and no additional complaints, except as documented and Reports as per HPI Respiratory Respiratory: Reports system reviewed and no additional complaints, except as documented and Reports as per HPI Gastrointestinal Gastrointestingal: Reports system reviewed and no additional complaints, except as documented and as per HPI Neurologic Neurologic: Reports headache(s) Physical Exam General General appearance: alert and in no apparent distress Expanded ENT Exam Nose exam: Present sinus tenderness Throat exam: Present tonsillar erythema Respiratory Respiratory exam: Present normal lung sounds bilaterally; Absent respiratory distress or wheezes Cardiovascular Cardiovascular exam: Present regular rate, normal rhythm and normal heart sounds Neurological Exam Neurological exam: Present alert, oriented X3 and normal gait Medical Decision Making Anam Inquiry Pt receiving controlled substance: No Anam was queried for this patient: No Vital Signs: 03/17/24 16:20 Temperature 98.2 F Temperature Source Oral Pulse Rate [Left Brachial] 76 Respiratory Rate 20 Blood Pressure [Left Arm] 126/76 Blood Pressure Mean [Left Arm] 92 Blood Pressure Source [Left Arm] Automatic Cuff Blood Pressure Position [Left Arm] Sitting 02 Sat by Pulse Oximetry 96 Lab Data Lab results reviewed: Yes I reviewed the patient's lab results. Lab Results 03/17/24 16:34: Strep Scn Rapid Clinic Negative Orders (Tests/Meds): ORDERS Category Date Time Status Strep Screen Confirmation Stat Micro 03/17/24 16:34 Received
[2024-03-17 17:37] VITALS: BP 126/76; PULSE 76; RESP 20; TEMP 36.8; O2SAT 96
== END 2024-03-17 17:39 | disposition home or self-care (01) ==
PROVIDERS: Emergency Provider Nurse Practitioner; PCP Family Medicine
DX: J01.90 Acute sinusitis, unspecified (principal); R07.0 Pain in throat; R05.9 Cough, unspecified
CPT/HCPCS: 87880; 99212; 99214; G0463

== ENCOUNTER 2024-05-03 09:24 | Emergency (ER) | payer OTHER, SELFPAY ==
[2024-05-03 09:30] VITALS: BP 122/78; PULSE 83; RESP 20; TEMP 36.9; O2SAT 96; BMI 30.2
--- NOTE | 2024-05-03 09:40 | XR_ITS ---
PROCEDURE INFORMATION: Exam: XR Left Foot Exam date and time: 05/03/2024 10:22 AM Age: 38 years old Clinical indication: Pain; Foot; Left; Additional info: Pain x 1 week, no known trauma TECHNIQUE: Imaging protocol: Radiologic exam of the left foot. Views: 3 or more views. COMPARISON: CR XR FOOT LT MIN 3V 12/05/2020 11:22 AM FINDINGS: Bones/joints: No visible fracture or dislocation. No significant periarticular erosive changes to suggest inflammatory arthritis. Soft tissues: Normal. IMPRESSION: 1. No visible fracture or dislocation. 2. No significant periarticular erosive changes to suggest inflammatory arthritis.
--- NOTE | 2024-05-03 09:55 | ED_ITS ---
Discharge Plan Disposition Patient Disposition: Home, Self-Care Condition: Good Prescriptions Prescriptions: No Action losartan 50 mg tablet 50 mg PO DAILY Patient Comments: TAKE 1 TABLET BY MOUTH ONCE DAILY sumatriptan succinate 100 mg tablet 100 mg PO DAILY Patient Comments: TAKE ONE TABLET BY MOUTH AT ONSET OF MIGRAINE. IF SYMPTOMS PERSIST, A SECOND DOSE MAY BE TAKEN IN 2 HOURS. DO NOT EXCEED 2 DOSES IN A 24 HOUR PERIOD, UNLESS OTHERWISE INSTRUCTED BY YOUR PHYSICIAN metoprolol succinate 100 mg tablet extended release 24 hr 100 mg PO DAILY Patient Comments: TAKE 1 TABLET BY MOUTH ONCE DAILY topiramate 25 mg tablet 25 mg PO BID Patient Comments: TAKE 1 TABLET BY MOUTH TWICE DAILY estradiol 2 mg tablet 2 mg PO DAILY Patient Comments: TAKE 1 TABLET BY MOUTH ONCE DAILY estradiol 0.5 mg tablet 0.5 mg PO DAILY Patient Comments: TAKE 1 TABLET BY MOUTH ONCE DAILY duloxetine 60 mg capsule,delayed release(DR/EC) 60 mg PO DAILY Patient Comments: TAKE 2 CAPSULES BY MOUTH ONCE DAILY Referrals Follow up/Referrals: Tonio Jenkins MD [Primary Care Provider] - See instructions Trinity Hurd APRN [Nurse Practitioner] - See instructions Marisa Benitez DPM [Staff Physician] - See instructions Activity Restrictions/Add. Instructions Additional Instructions/Restrictions: *weight bearing as tolerated *RICE, Rest the extremity, Ice 15-20 minutes 3-4 times daily, Compress- wear the dennis wrap as discussed as much as possible to help reduce swelling and pain, Elevate the extremity when at rest *Dennis wrap is for support and help control swelling, use it except in the shower. Be sure that is not to tight but not to loose either *Elevate when resting? *Ibuprofen 600-800mg every 6-8 hours as needed for pain an inflammation if you can take it if not take Tylenol. Immediately follow up with your family doctor for new or worsening of symptoms, or no noticeable improvement over the next 3-5 days Clinical Impressions Clinical Impression: Foot pain Qualifiers: Laterality: left Qualified Code(s): M79.672 - Pain in left foot Instructions Patient Instructions: How To Perform RICE (Rest, Ice, Compress, Elevate), How to Apply an Dennis Wrap Print Language Print Language: Citizen Of [place] Discharge ED Provider: Melissa Rodríguez [facility] General Stated complaint: left foot pain, no accident Time Seen by Provider: 05/03/24 09:55 History of Present Illness Provider Complaint: Patient states that she noticed a knot on the inside of her left foot and it has been sore and hurting Denies known injury so today when it was still bothering her she came in to get it checked Related Data Home Medications ?Medication ?Instructions ?Recorded ?Confirmed duloxetine 60 mg capsule,delayed 60 mg PO DAILY 05/03/24 05/03/24 release estradiol 0.5 mg tablet 0.5 mg PO DAILY 05/03/24 05/03/24 estradiol 2 mg tablet 2 mg PO DAILY 05/03/24 05/03/24 losartan 50 mg tablet 50 mg PO DAILY 05/03/24 05/03/24 metoprolol succinate 100 mg 100 mg PO DAILY 05/03/24 05/03/24 tablet,extended release 24 hr sumatriptan succinate 100 mg tablet 100 mg PO DAILY 05/03/24 05/03/24 topiramate 25 mg tablet 25 mg PO BID 05/03/24 05/03/24 Allergies Allergy/AdvReac Type Severity Reaction Status Date / Time amoxicillin [From Augmentin] Allergy Intermediate I-RASH Verified 02/07/24 11:43 clavulanic acid Allergy Intermediate I-RASH Verified 02/07/24 11:43 [From Augmentin] banana Allergy Mild THROAT Verified 02/07/24 11:43 [From BANANAS (FOOD/DRUG)] SWELLS shellfish derived Allergy Mild ON SKIN Verified 02/07/24 11:43 [From SHELLFISH (FOOD/DRUG)] TEST ONLY (CRABMEAT) strawberry Allergy Mild THROAT Verified 02/07/24 11:43 [From STRAWBERRIES SWELLS (FOOD/DRUG)] ketorolac [From TORADOL] Allergy Unknown NA-NAUSEA/V Verified 02/07/24 11:43 OMITING PFSH PFSH Disclaimer: The information contained in this section may have been updated after the patient was seen, as this information can be updated by other users. 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 current occupational exposures/hazards: No caffeine: Yes ROS Obtained: Yes All systems reviewed & no additional complaints except as documented and Yes Systems reviewed as appropriate & no additional complaints except as documented Constitutional Constitutional: Reports system reviewed and no additional complaints, except as documented and Reports as per HPI ENT Ears, Nose, Mouth, and Throat: Reports system reviewed and no additional complaints, except as documented and Reports as per HPI Cardiovascular Cardiovascular: Reports system reviewed and no additional complaints, except as documented and Reports as per HPI Respiratory Respiratory: Reports system reviewed and no additional complaints, except as documented and Reports as per HPI Musculoskeletal Musculoskeletal: Reports system reviewed and no additional complaints, except as documented, Reports as per HPI and Reports other (pain in left foot with a knot on the inside foot beside her heel) Physical Exam General General appearance: alert and in no apparent distress ENT ENT exam: Present mucous membranes moist Respiratory Respiratory exam: Present normal lung sounds bilaterally; Absent respiratory distress or wheezes Cardiovascular Cardiovascular exam: Present regular rate, normal rhythm and normal heart sounds Expanded Lower Extremity Exam Left: Ankle image: 2 1. reports pain and tenderness with walking no bruising no swelling or bruising noted Gait: observed and normal Neurological Exam Neurological exam: Present alert, oriented X3 and normal gait Medical Decision Making Anam Inquiry Pt receiving controlled substance: No Anam was queried for this patient: No Orders (Tests/Meds): ORDERS Category Date Time Status Foot XR left minimum 3 views [XR foot LT min 3V] Stat Exams 05/03/24 09:40 Ordered Radiology Data #1: Image(s): Foot/Toes Image Reviewed: Yes I reviewed the patient's radiology image Preliminary Findings: Normal/NAD
[2024-05-03 11:00] VITALS: BP 122/78; PULSE 83; RESP 20; TEMP 36.9; O2SAT 96
== END 2024-05-03 11:05 | disposition home or self-care (01) ==
PROVIDERS: Emergency Provider Nurse Practitioner; PCP Family Medicine
DX: M79.672 Pain in left foot (principal)
CPT/HCPCS: 73630; 99212; 99213; G0463

== ENCOUNTER 2024-06-11 15:42 | Outpatient (CLI) | payer OTHER, SELFPAY ==
[2024-06-11 16:17] LABS: Basophils # 0.1 K/mm3 (0-0.2); Basophils % 0.7 % (0.1-2.0); Eosinophils # 0.1 K/mm3 (0.0-0.4); Eosinophils % 1.5 % (0.1-12.0); Hemoglobin 11.8 g/dL (12.2-16.2); Lymphocytes # 2.7 K/mm3 (0.7-4.5); Lymphocytes % 33.3 % (10-50); Mean Corpuscular HGB Conc 33.6 g/dL (31.8-35.4); Mean Corpuscular Hemoglobin 29.4 pg (27.0-31.2); Mean Corpuscular Volume 87.5 fl (81-99); Mean Platelet Volume 7.9 fl (7.4-10.4); Monocytes # 0.4 K/mm3 (0.1-1.0); Monocytes % 4.6 % (1.7-9.3); Neutrophils # 4.8 K/mm3 (1.8-7.8); Neutrophils % 59.9 % (37.0-80.0); Platelet Count 301 K/mm3 (142-424); Red Cell Distribution Width 13.4 % (11.5-17.5)
== END 2024-06-11 23:59 | disposition home or self-care (01) ==
LOC: LAB 15:43
PROVIDERS: PCP Physician Assistant; Visit Provider Physician Assistant
DX: J06.9 Acute upper respiratory infection, unspecified (principal)
CPT/HCPCS: 36415; 85025

== ENCOUNTER 2024-06-24 16:03 | Emergency (ER) | payer OTHER, SELFPAY ==
--- NOTE | 2024-06-24 16:39 | EXP.UTC ---
Discharge Plan Disposition Patient Disposition: Home, Self-Care Condition: Good Prescriptions Prescriptions: New methylprednisolone 4 mg Tablets,Dose Pack 4 mg PO DIRECTED 6 Days Qty: 21 0RF Rx Instructions: Take 1 pack as directed for 6 days No Action losartan 50 mg tablet 50 mg PO DAILY Patient Comments: TAKE 1 TABLET BY MOUTH ONCE DAILY sumatriptan succinate 100 mg tablet 100 mg PO DAILY Patient Comments: TAKE ONE TABLET BY MOUTH AT ONSET OF MIGRAINE. IF SYMPTOMS PERSIST, A SECOND DOSE MAY BE TAKEN IN 2 HOURS. DO NOT EXCEED 2 DOSES IN A 24 HOUR PERIOD, UNLESS OTHERWISE INSTRUCTED BY YOUR PHYSICIAN metoprolol succinate 100 mg tablet extended release 24 hr 100 mg PO DAILY Patient Comments: TAKE 1 TABLET BY MOUTH ONCE DAILY topiramate 25 mg tablet 25 mg PO BID Patient Comments: TAKE 1 TABLET BY MOUTH TWICE DAILY estradiol 2 mg tablet 2 mg PO DAILY Patient Comments: TAKE 1 TABLET BY MOUTH ONCE DAILY duloxetine 60 mg capsule,delayed release(DR/EC) 60 mg PO DAILY Patient Comments: TAKE 2 CAPSULES BY MOUTH ONCE DAILY Referrals Follow up/Referrals: Tonio Jenkins MD [Primary Care Provider] - See instructions Aayush Bates DO [Staff Physician] - See instructions Activity Restrictions/Add. Instructions Additional Instructions/Restrictions: Rest the extremity. Take the medication (medrol dose pack) as directed. Follow up with Dr. Bates (orthopedics). I put in a referral but you need to call his office and schedule an appointment. Follow up with your regular doctor. GO TO THE ER FOR ANY WORSENING SYMPTOMS Clinical Impressions Clinical Impression: Tendinosis of right shoulder Instructions Patient Instructions: DI for Shoulder Tendinopathy, Methylprednisolone Print Language Print Language: Iranian Discharge ED Provider: [place] Schaffer [facility] General Stated complaint: painful RT shoulder , arm Time Seen by Provider: 06/24/24 16:39 History of Present Illness Provider Complaint: She states that for the past 3 days she has had rigth shoulder pain. Her symptoms are worse when she raises her arm over her head. She denies any recent falls or injury. Related Data Home Medications ?Medication ?Instructions ?Recorded ?Confirmed duloxetine 60 mg capsule,delayed 60 mg PO DAILY 05/03/24 06/30/24 release estradiol 2 mg tablet 2 mg PO DAILY 05/03/24 06/30/24 losartan 50 mg tablet 50 mg PO DAILY 05/03/24 06/30/24 metoprolol succinate 100 mg 100 mg PO DAILY 05/03/24 06/30/24 tablet,extended release 24 hr sumatriptan succinate 100 mg tablet 100 mg PO DAILY 05/03/24 06/30/24 topiramate 25 mg tablet 25 mg PO BID 05/03/24 06/30/24 Previous Rx's ?Medication ?Instructions ?Recorded methylprednisolone 4 mg tablets in 4 mg PO DIRECTED 6 days #21 tabs 06/24/24 a dose pack Allergies Allergy/AdvReac Type Severity Reaction Status Date / Time amoxicillin (From Augmentin) Allergy Intermediate I-RASH Verified 06/30/24 09:51 clavulanic acid (From Allergy Intermediate I-RASH Verified 06/30/24 09:51 Augmentin) banana (From BANANAS Allergy Mild THROAT Verified 06/30/24 09:51 (FOOD/DRUG)) SWELLS shellfish derived (From Allergy Mild ON SKIN Verified 06/30/24 09:51 SHELLFISH (FOOD/DRUG)) TEST ONLY (CRABMEAT) strawberry (From Allergy Mild THROAT Verified 06/30/24 09:51 STRAWBERRIES (FOOD/DRUG)) SWELLS ketorolac (From TORADOL) Allergy Unknown NA-NAUSEA/V Verified 06/30/24 09:51 OMITING PFSH PFSH Disclaimer: The information contained in this section may have been updated after the patient was seen, as this information can be updated by other users. 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 current occupational exposures/hazards: No caffeine: Yes ROS Obtained: Yes All systems reviewed & no additional complaints except as documented Constitutional Constitutional: Denies chills and Denies fever(s) Eyes Eyes: Denies eye discharge ENT Ears, Nose, Mouth, and Throat: Denies dizziness, Denies otalgia and Denies sore throat Cardiovascular Cardiovascular: Denies chest pain Respiratory Respiratory: Denies shortness of breath, Denies chest congestion, Denies cough, Denies stridor and Denies wheezing Gastrointestinal Gastrointestingal: Denies nausea or vomiting Musculoskeletal Musculoskeletal: Reports as per HPI Integumentary/Breasts Skin/Breast: Denies rash Neurologic Neurologic: Denies dizziness and Denies paresthesias Allergic/Immunologic Allergic/Immunologic: Denies wheezing Physical Exam General General appearance: alert and in no apparent distress Head Head exam: atraumatic, normocephalic and normal inspection Eye Eye exam: Present normal appearance, PERRL and EOMI ENT ENT exam: Present normal exam, normal oropharynx, mucous membranes moist, TM's normal bilaterally and normal external ear exam Neck Neck exam: Present normal inspection, full ROM and trachea midline; Absent meningismus or lymphadenopathy Chest Chest inspection: Present normal inspection and symmetric chest wall rise; Absent tenderness Respiratory Respiratory exam: Present normal lung sounds bilaterally; Absent respiratory distress Cardiovascular Cardiovascular exam: Present regular rate and normal rhythm; Absent JVD Abdominal Exam Abdominal exam: Present soft and normal bowel sounds; Absent distention, tenderness or guarding Extremities Exam Extremities exam: Present normal capillary refill; Absent calf tenderness Expanded Upper Extremity Exam Left: Shoulder exam: Present full ROM; Absent tenderness, swelling, abrasion, laceration, ecchymosis, deformity, crepitus, dislocation, erythema or tenderness over AC joint Arm exam: Present normal inspection and full ROM; Absent tenderness Elbow exam: Present normal inspection and full ROM; Absent tenderness Forearm/Wrist exam: Present normal inspection and full ROM; Absent tenderness Hand exam: Present normal inspection and full ROM; Absent tenderness Neuromotor exam: Normal wrist extension, thumb opposition, thumb IP flexion and thumb adduction Neurosensory exam: Normal radial nerve, ulnar nerve and median nerve Vascular exam: Normal capillary refill, radial pulse and ulnar pulse Back Exam Back exam: Present normal inspection; Absent tenderness Neurological Exam Neurological exam: Present alert and oriented X3 Psychiatric Psychiatric exam: Present normal affect and normal mood Skin Skin exam: Present warm, dry, intact and normal color Lymphatic Lymphatic Findings: no adenopathy Medical Decision Making Medical Records Medical records reviewed: No I reviewed the patient's medical records. Screening: Per USPSTF and CDC recommendations, given the prevalence of disease in our region, it is our hospital?s policy to screen for HIV and viral Hepatitis for all patients aged 18 and over and those with ongoing risk factors. Anam Inquiry Pt receiving controlled substance: No
[2024-06-24 16:44] VITALS: BP 140/83; PULSE 84; RESP 20; TEMP 36.7; O2SAT 98; BMI 29.6
[2024-06-24 17:12] VITALS: BP 140/83; PULSE 84; RESP 20; TEMP 36.7
== END 2024-06-24 17:17 | disposition home or self-care (01) ==
PROVIDERS: Emergency Provider Nurse Practitioner Family; PCP Family Medicine
DX: M75.21 Bicipital tendinitis, right shoulder (principal)
CPT/HCPCS: 99213; G0381

== ENCOUNTER 2024-06-30 09:28 | Outpatient (CLI) | payer OTHER, SELFPAY ==
--- NOTE | 2024-06-30 09:31 | XR_ITS ---
FINAL REPORT CLINICAL HISTORY: right shoulder pain COMPARISON: None FINDINGS: RIGHT SHOULDER Two views demonstrate no acute fracture or dislocation. Mild acromioclavicular degenerative changes are present. The visualized bony structures are well aligned. No soft tissue abnormality is seen. IMPRESSION: Mild acromioclavicular degenerative change without acute bony abnormality. Reviewed, Interpreted and Dictated by Chris Eid III, MD Transcribed by Chelsey Keating Authenticated and [facility]
== END 2024-06-30 23:59 | disposition home or self-care (01) ==
LOC: RAD 09:29
PROVIDERS: PCP Family Medicine; Visit Provider Physician Assistant
DX: M67.813 Other specified disorders of tendon, right shoulder (principal)
CPT/HCPCS: 73030

== ENCOUNTER 2024-08-16 10:35 | Emergency (ER) | payer OTHER, SELFPAY ==
[2024-08-16 12:09] VITALS: BP 110/69; PULSE 89; RESP 18; TEMP 36.8; O2SAT 100; BMI 29.7
--- NOTE | 2024-08-16 12:17 | ED_ITS ---
Discharge Plan Disposition Patient Disposition: Home, Self-Care Condition: Good Prescriptions Prescriptions: New bhsdwzxtksjkdek-luptqylxe-EV [Bromfed DM] 2-30-10 mg/5 mL Syrup 5 ml PO Q6H PRN (Reason: Cough) Qty: 240 0RF ondansetron 4 mg Tablet,Disintegrating 4 mg PO Q8H PRN (Reason: Nausea) Qty: 12 0RF methylprednisolone 4 mg Tablets,Dose Pack 4 mg PO DIRECTED 6 Days Qty: 21 0RF Rx Instructions: Take 1 pack as directed for 6 days No Action aripiprazole 10 mg tablet 10 mg PO DAILY Patient Comments: TAKE 1 TABLET BY MOUTH ONCE DAILY AT BEDTIME losartan 50 mg tablet 50 mg PO DAILY Patient Comments: TAKE 1 TABLET BY MOUTH ONCE DAILY sumatriptan succinate 100 mg tablet 100 mg PO DAILY Patient Comments: TAKE ONE TABLET BY MOUTH AT ONSET OF MIGRAINE. IF SYMPTOMS PERSIST, A SECOND DOSE MAY BE TAKEN IN 2 HOURS. DO NOT EXCEED 2 DOSES IN A 24 HOUR PERIOD, UNLESS OTHERWISE INSTRUCTED BY YOUR PHYSICIAN metoprolol succinate 100 mg tablet extended release 24 hr 100 mg PO DAILY Patient Comments: TAKE 1 TABLET BY MOUTH ONCE DAILY topiramate 25 mg tablet 25 mg PO BID Patient Comments: TAKE 1 TABLET BY MOUTH TWICE DAILY estradiol 2 mg tablet 2 mg PO DAILY Patient Comments: TAKE 1 TABLET BY MOUTH ONCE DAILY duloxetine 60 mg capsule,delayed release(DR/EC) 60 mg PO DAILY Patient Comments: TAKE 2 CAPSULES BY MOUTH ONCE DAILY Referrals Follow up/Referrals: Tonio Jenkins MD [Primary Care Provider] - See instructions Activity Restrictions/Add. Instructions Additional Instructions/Restrictions: Drink plenty of fluids. Take tylenol or ibuprofen for pain or fever. Take the medications as directed. Follow up with your regular doctor. GO TO THE ER FOR ANY WORSENING SYMPTOMS Clinical Impressions Clinical Impression: Acute viral syndrome, Exposure to 2019 novel coronavirus, Asthma Print Language Print Language: Bulgarian Discharge ED Provider: [place] Schaffer [facility] General Stated complaint: st shoemaker ba covid exposure Mode of Arrival: Ambulatory Source of Information: Patient Time Seen by Provider: 08/16/24 12:13 Description of Symptoms (Recalled from Triage Doc. by RN): SHOEMAKER, SORE THROAT, BA HEENT Symptoms (Recalled from RN notes): Yes Resp Symptoms (Recalled from RN notes): Yes Skin Symptoms (Recalled from RN notes): No MS Symptoms (Recalled from RN notes): No Functional Status (Recalled from RN notes): WNL Related Data Home Medications ?Medication ?Instructions ?Recorded ?Confirmed duloxetine 60 mg capsule,delayed 60 mg PO DAILY 05/03/24 08/16/24 release estradiol 2 mg tablet 2 mg PO DAILY 05/03/24 08/16/24 losartan 50 mg tablet 50 mg PO DAILY 05/03/24 08/16/24 metoprolol succinate 100 mg 100 mg PO DAILY 05/03/24 08/16/24 tablet,extended release 24 hr sumatriptan succinate 100 mg tablet 100 mg PO DAILY 05/03/24 08/16/24 topiramate 25 mg tablet 25 mg PO BID 05/03/24 08/16/24 aripiprazole 10 mg tablet 10 mg PO DAILY 08/16/24 08/16/24 Previous Rx's ?Medication ?Instructions ?Recorded haqzqehsygjafez-snprsfcsbclflrc-OA 5 ml PO Q6H PRN Cough #240 mL 08/16/24 2 mg-30 mg-10 mg/5 mL oral syrup (Bromfed DM) methylprednisolone 4 mg tablets in 4 mg PO DIRECTED 6 days #21 tabs 08/16/24 a dose pack ondansetron 4 mg disintegrating 4 mg PO Q8H PRN Nausea #12 tabs 08/16/24 tablet Allergies Allergy/AdvReac Type Severity Reaction Status Date / Time amoxicillin (From Augmentin) Allergy Intermediate I-RASH Verified 08/06/24 09:51 clavulanic acid (From Allergy Intermediate I-RASH Verified 08/06/24 09:51 Augmentin) banana (From BANANAS Allergy Mild THROAT Verified 08/06/24 09:51 (FOOD/DRUG)) SWELLS shellfish derived (From Allergy Mild ON SKIN Verified 08/06/24 09:51 SHELLFISH (FOOD/DRUG)) TEST ONLY (CRABMEAT) strawberry (From Allergy Mild THROAT Verified 08/06/24 09:51 STRAWBERRIES (FOOD/DRUG)) SWELLS ketorolac (From TORADOL) Allergy Unknown NA-NAUSEA/V Verified 08/06/24 09:51 OMITING Worker's Comp Is this a Worker's Comp case?: No [facility] PFS Disclaimer: The information contained in this section may have been updated after the patient was seen, as this information can be updated by other users. 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 current occupational exposures/hazards: No caffeine: Yes Have you lived/traveled outside [place] in past 30 days?: No Contact w/someone who lives/traveled outside [place] past 30 days?: No Exposure to someone with infectious disease in past 14 days?: Yes Do you have a fever (greater than 100.4 F or 38 C)?: No Have you tested positive for COVID-19: No Exposed to someone with COVID-19 in past 14 days?: Yes Do you have a sore throat?: Yes Do you have a cough?: No Do you have any weakness?: No Do you have any diarrhea?: No Are you experiencing any unusual bleeding?: No Do you have any muscle aches/pain?: Yes Do you have any abdominal pain?: No Are you experiencing loss of taste or smell?: No ROS Obtained: Yes All systems reviewed & no additional complaints except as documented Constitutional Constitutional: Reports chills and Reports fever(s) Eyes Eyes: Denies eye discharge ENT Ears, Nose, Mouth, and Throat: Reports as per HPI Cardiovascular Cardiovascular: Denies chest pain Respiratory Respiratory: Denies chest congestion and Reports cough Gastrointestinal Gastrointestingal: Reports nausea; Denies abdominal pain, constipation, cramping, diarrhea or vomiting Musculoskeletal Musculoskeletal: Denies arthralgias Integumentary/Breasts Skin/Breast: Denies rash Neurologic Neurologic: Denies paresthesias Physical Exam General General appearance: alert and in no apparent distress Head Head exam: atraumatic, normocephalic and normal inspection Eye Eye exam: Present normal appearance, PERRL and EOMI ENT ENT exam: Present mucous membranes moist and normal external ear exam Expanded ENT Exam TM/Canal exam: Bilateral TM: erythema and bulging Nose exam: Absent sinus tenderness Mouth exam: Present normal external inspection; Absent drooling Teeth exam: Present normal inspection Throat exam: Present tonsillar erythema, tonsillomegaly and tonsillar exudate Neck Neck exam: Present normal inspection, full ROM and trachea midline; Absent tenderness, meningismus or lymphadenopathy Chest Chest inspection: Present normal inspection and symmetric chest wall rise; Absent tenderness Respiratory Respiratory exam: Present normal lung sounds bilaterally; Absent respiratory distress, wheezes, stridor or accessory muscle use Cardiovascular Cardiovascular exam: Present regular rate and normal rhythm; Absent systolic murmur or diastolic murmur Abdominal Exam Abdominal exam: Present soft and normal bowel sounds; Absent distention, tenderness, guarding, rebound or rigidity Extremities Exam Extremities exam: Present normal inspection and normal capillary refill; Absent calf tenderness Back Exam Back exam: Present normal inspection and full ROM; Absent tenderness, CVA tenderness (R) or CVA tenderness (L) Neurological Exam Neurological exam: Present alert, oriented X3 and CN II-XII intact Psychiatric Psychiatric exam: Present normal affect and normal mood Skin Skin exam: Present warm, dry, intact and normal color Medical Decision Making Medical Records Medical records reviewed: No I reviewed the patient's medical records. Screening: Per USPSTF and CDC recommendations, given the prevalence of disease in our region, it is our hospital?s policy to screen for HIV and viral Hepatitis for a ll patients aged 18 and over and those with ongoing risk factors. Anam Inquiry Pt receiving controlled substance: No Vital Signs: 08/16/24 12:09 Temperature 98.2 F Temperature Source Oral Pulse Rate [Left Radial] 89 Respiratory Rate 18 Blood Pressure [Left Arm] 110/69 Blood Pressure Mean [Left Arm] 82 02 Sat by Pulse Oximetry 100
[2024-08-16 12:21] LABS: UTC Strep Screen (Rapid) Negative (Negative)
[2024-08-16 12:46] VITALS: BP 110/69; PULSE 89; RESP 18; TEMP 36.8
[2024-08-16 12:52] LABS: Coronavirus 19, PCR Not Detected (NotDetected); Influenza A, PCR Not Detected (NotDetected); Influenza B, PCR Not Detected (NotDetected)
== END 2024-08-16 12:50 | disposition home or self-care (01) ==
PROVIDERS: Emergency Provider Nurse Practitioner Family; PCP Family Medicine
DX: J45.909 Unspecified asthma, uncomplicated (principal); B34.9 Viral infection, unspecified; R50.9 Fever, unspecified; R51.9 Headache, unspecified; J02.9 Acute pharyngitis, unspecified; M54.9 Dorsalgia, unspecified; R05.9 Cough, unspecified; R11.0 Nausea; Z20.822 Contact with and (suspected) exposure to COVID-19
CPT/HCPCS: 87636; 87880; 99212; G0381

== ENCOUNTER 2025-01-01 13:16 | Outpatient (CLI) | payer OTHER, SELFPAY ==
--- OUTSIDE RECORDS SUMMARY | 2025-01-01 13:19 | XMS_ITS | Continuity of Care Document ---
Author Name [facility] Organization [facility] Care Team Providers Care Arcade Technician Name Role Phone [facility] Unavailable Unavailable Problems Combined list of problems from Department of Defense and Veterans Affairs facilities. It does not include entries that were removed or entered in error. Problem Status Onset Date Problem Type Date of Resolution Comments Source LARYNGITIS ACUTE Inactive Condition DoD bowel movement frequency recent change Active Condition DoD visit for: administrative purpose Active Condition DoD joint pain, localized in the knee Active Condition DoD visit for: contraceptive surveillance pill Inactive Condition DoD visit for: screening exam for malignant neoplasm cervix Active Condition DoD visit for: screening exam venereal disease Active Condition DoD ROUTINE GYNECOLOGICAL EXAM WITH CERVICAL PAP SMEAR Inactive Condition [facility] LEG STRAIN POSTERIOR TIBIALIS Inactive Condition DoD ACUTE BRONCHITIS Inactive Condition DoD ACUTE TONSILLITIS Active Condition DoD nausea with vomiting Inactive Condition DoD VOLUME DEPLETION Inactive Condition DoD VIRAL SYNDROME Inactive Condition DoD joint pain, localized in the wrist Active Condition DoD visit for: services physical Active Condition DoD REFRACTIVE ERROR Active Condition DoD Need For Vaccination Chickenpox (Active) Active Condition DoD Vaccines Prophylactic Need Against Bacterial Diseases Active Condition DoD Vaccines Prophylactic Need Against Viral Diseases Inactive Condition DoD Vaccines Prophylactic Need Active Condition DoD Need For Vaccination Hepatitis A Active Condition DoD nausea Inactive Condition DoD COMMON COLD Active Condition DoD visit for: ears / hearing exam Active Condition [facility] ASSESSMENT OF PATIENT CONDITION WORK-RELATED Active Condition [facility] visit for: screening exam pulmonary tuberculosis Active Condition DoD Allergies, Adverse Reactions, Alerts Combined list of allergies from Department of Defense and Veterans Affairs facilities. It does not include entries that were removed or entered in error. Substance Category Reaction Severity Reaction type Status Date Reported Comments Source No Known Allergies Drug allergy (disorder) active 12/22/2008 [facility] Immunizations Combined list of available immunizations from the Department of Defense and Veterans Affairs facilities. Immunization Series Date Given Administered By Site Reaction Lot Number CVX Code Drug Clinical Trial Head Status Comments Source influenza virus vaccine, live, attenuated, for intranasal use 1 2010 [id number] [employer] (MED) complet ed influenza virus vaccine, live, attenuate d, for intranasa l use DoD human papilloma virus vaccine, quadrivalent 1 2008 MARGRET [id number] 62 Merck (MSD) complet ed human papilloma virus vaccine, quadrival ent DoD varicella virus vaccine 2 2008 [id number] Merck (MSD) complet ed varicella virus vaccine DoD poliovirus vaccine, inactivated 1 2008 [id number] Sanofi Pasteur (PMC) complet ed polioviru s vaccine, inactivat ed DoD varicella virus vaccine 1 2008 [id number] 21 Merck (MSD) complet ed varicella virus vaccine DoD hepatitis A vaccine, adult dosage 1 2008 [id number] 52 SmithKline (SKB) complet ed hepatitis A vaccine, adult dosage DoD meningococcal polysaccharid e (groups A, C, Y and W-135) diphtheria toxoid conjugate vaccine (MCV4P) 1 2008 [id number] Sanofi Pasteur (PMC) complet ed meningoco ccal polysacch aride (groups A, C, Y and W-135) diphtheri a toxoid conjugate vaccine (MCV4P) DoD tetanus toxoid, reduced diphtheria toxoid, and acellular pertu is vaccine, adsorbed 1 2008 [id number] 115 SmithKline (SKB) complet ed tetanus toxoid, reduced diphtheri a toxoid, and acellular pertussis vaccine, adsorbed DoD measles, mumps and rubella virus vaccine 1 2008 UNK 03 Unknown (UNK) Not Given measles, mumps and rubella virus vaccine DoD hepatitis B vaccine, adult dosage 1 2008 UNK 43 Unknown (UNK) Not Given hepatitis B vaccine, adult dosage DoD Encounters Combined list of: 1) Encounters from Department of Veterans Affairs facilities going backup to the last 18 months, not all VA inpatient encounters are included; 2) Encounters from the Department of Defense facilities going backup to 280 months. Location Location Details Encounter Type Encounter Number Reason For Visit Attending Provider ADM Date DC Date Status Disposition Source [facility](BRITT[facility] C Post Immunizat ion) OUTPATIENT [id number] IET EDWINA POTTS 12/22 Released w/o Limitations [facility] [facility](M AHC Post Immuniz ation) [facility](IEP Hearing Conservat ion) OUTPATIENT [id number] ILEANA EDMONDS 12/22 Released w/o Limitations [facility] [facility](I EP Hearing Conserv ation) [facility](IEP Primary Care) OUTPATIENT [id number] YEFRI CAT P 12/23 Released with Work/Duty Limitations [facility](I EP Primary Care) [facility](BRITTNI C Post Immunizat ion) OUTPATIENT [id number] IET IMMUNIZ ATIONS SAUL LUONG 12/24 Released w/o Limitations [facility](M AHC Post Immuniz ation) [facility](PES Optometry -Trainee) OUTPATIENT [id number] ERWIN BESTCHI Peña 12/27 Released w/o Limitations [facility](P ES Optomet ry-Cory nee) [facility](TMC Ambulator y) OUTPATIENT [id number] JAZLYN HAMEED 01/04 Immediate Referral [facility](T MC Ambulat ory) [facility](BRITTNI C Occupatio nal Therapy) OUTPATIENT [id number] walk in eval HARRISON SOLO 01/04 Released w/o Limitations [facility](M AHC Occupat ional Therapy ) [facility](TMC Ambulator y) OUTPATIENT [id number] HARRISON WERNER 01/08 Released w/o Limitations [facility](T MC Ambulat ory) [facility](TMC Ambulator y) OUTPATIENT [id number] DAT SILVA 01/17 Released with Work/Duty Limitations [facility] [facility](T MC Ambulat ory) [facility](BRITTNI C Occupatio nal Therapy) OUTPATIENT [id number] walk in f/u HARRISON SOLO 01/17 Released w/o Limitations [facility](M AHC Occupat ional Therapy ) [facility](BRITTNI C Occupatio nal Therapy) OUTPATIENT [id number] f/u HARRISON SOLO 01/26 Released w/o Limitations [facility](M AHC Occupat ional Therapy ) [facility](TMC Ambulator y) OUTPATIENT [id number] TJ SOTO 02/08 Released with Work/Duty Limitations [facility](T MC Ambulat ory) [facility](TMC Ambulator y) OUTPATIENT [id number] TANJA DAHL *CHANTEL* 02/09 Released with Work/Duty Limitations [facility](T MC Ambulat ory) [facility] [facility] [employer] 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 [facility]) OUTPATIENT [id number] RENATE FERGUSON 02/16 Released with Work/Duty Limitations [employer](F [facility] [place] [facility]) [facility]([place]gy [place]) OUTPATIENT [id number] ait MARYCRUZ Figueroa (COMPANY DOCTOR) 03/15 Released w/o Limitations [facility](Corporate Driver ecology [place]) [facility]-TM C 1 [place]) OUTPATIENT [id number] left knee pain RENZO GOODWIN 04/12 Released with Work/Duty Limitations [facility] [place] [facility] OUTPATIENT [id number] self care ORALIA NIEVES 04/12 Released w/o Limitations [facility] [place] [facility] [place] [facility]- [place] OUTPATIENT [id number] follow up left knee RENZO GOODWIN 04/18 Released with Work/Duty Limitations [facility] [place] [facility] [place] [facility]- [place]) TELE CONSULT [id number] on-call CALVIN Hernandez 04/29 [facility] [place] [facility] [place] OUTPATIENT [id number] self care ERIC BULL 04/29 Released w/o Limitations [facility] 1 [place]) [facility] [place] OUTPATIENT [id number] sore throat JOHANA LAU 11/30 [facility] with Work/Duty Limitations [facility]) Procedures Combined list of: 1) Procedures from Department of Veterans Affairs facilities going back up to [facility] 18 months, not all VA non-surgical procedures are included; 2) All procedures from the Department of Defense facilities. Procedure Procedure Type Code Date Perfomer Comments Sour e EDUCATIONAL SUPPLIES, SUCH BOOKS, TAPES, AND PAMPHLETS, FOR THE PATIENT'S EDUCATION AT COST TO PHYSICIAN OR OTHER QUALIFIED HEALTH DIRECTOR MEDICAL 03/15/[address] [facility] CRUTCHES UNDERARM, OTHER THAN WOOD, ADJUSTABLE OR FIXED, PAIR, WITH PADS, TIPS AND HANDGRIPS 02/17/[address] [facility] THERAPEUTIC, PROPHYLACTIC, OR DIAGNOSTIC INJECTION (SPECIFY SUBSTANCE OR DRUG); INTRAVENOUS PUSH, SINGLE OR INITIAL SUBSTANCE/DRUG 02/10/[address] [facility] INFUSION, NORMAL SALINE SOLUTION , 1000 CC 02/09/[address] [facility] OCCUPATIONAL THERAPY RE-EVALUATION 01/27/[address] [facility] OCCUPATIONAL THERAPY RE-EVALUATION 01/18/[address] [facility] OCCUPATIONAL THERAPY EVALUATION 01/05/[address] [facility] DETERMINATION OF REFRACTIVE STATE 12/28/[address] [facility] TETANUS, DIPHTHERIA TOXOIDS AND ACELLULAR PERTUSSIS VACCINE (TDAP), WHEN ADMINISTERED TO INDIVIDUALS 7 YEARS OR OLDER, FOR INTRAMUSCULAR USE 12/25/[address] [facility] ANALYSIS OF CLINICAL DATA STORED IN COMPUTERS (EG, ECGS, BLOOD PRESSURES, HEMATOLOGIC DATA) 12/23/[address] [facility] SKIN TEST; TUBERCULOSIS, INTRADERMAL 12/23/[address] [facility] Screening papanicolaou smear; obtaining, preparing and conveyance of cervical or vaginal smear to laboratory 03/15/20 09 MARYCRUZ VILLALBA (COMPANY DOCTOR) [facility] [employer]-Supervised Services Provision Of Educational Supplies -Supervised Services Provision Of Educational Supplies 02242 03/15/20 09 MARYCRUZ VILLALBA (COMPANY DOCTOR) [facility] Human Papilloma Virus Vaccine, Quadrivalent Human Papilloma Virus Vaccine, Quadrivalent 58398 03/15/20 09 MARYCRUZ VILLALBA (COMPANY DOCTOR) [facility] Immunization Administration One Vaccine Immunization Administration One Vaccine 71491 03/15/20 09 MARYCRUZ VILLALBA (COMPANY DOCTOR) [facility] Crutches, underarm, other than wood, adjustable or fixed, pair, with pads, tips and handgrips 02/17/[address] [facility] Athletic Training Evaluation Athletic Training Evaluation 05597 02/17/[address] [facility] Parenteral Fluids IV Infusion 02/10/20 09 TANJA DAHL *PA* 1000cc lactated ringers [facility] IV Infusion For Hydration 31 Minutes To 1 Hour IV Infusion For Hydration 31 Minutes To 1 Hour 25536 02/09/20 09 TJ SOTO Infusion, normal saline solution , 1000 cc 02/09/20 09 TJ SOTO Occupational Therapy Re-Evaluation Occupational Therapy Re-Evaluation 11032 01/27/20 09 HARRISON SOLO Occupational Therapy Re-Evaluation Occupational Therapy Re-Evaluation 63618 01/18/20 09 HARRISON SOLO Modalities Cryotherapy Cold Packs Modalities Cryotherapy Cold Packs 83802 01/09/20 09 HARRISON WERNER Hand-finger orthosis, without joints, may include soft interface, straps, prefabricated, includes fitting and adjustment 01/05/20 09 HARRISON SOLO Occupational Therapy Evaluation Occupational Therapy Evaluation 68221 01/05/20 09 HARRISON SOLO Ophthalmological New Patient Start Intermediate Level Care Ophthalmological New Patient Start Intermediate Level Care 02015 12/28/19 09 ARNULFO LOGAN [employer] Fitting Monofocals (Not For Aphakia) [employer] Fitting Monofocals (Not For Aphakia) 10343 12/28/19 09 ARNULFO LOGAN Determination Of Refractive State Determination Of Refractive State 98872 12/28/19 09 ARNULFO LOGAN Vaccines Viral Varicella (Active) Vaccines Viral Varicella (Active) 51640 12/25/19 09 SAUL LUONG Tdap Vaccine Tdap Vaccine 70297 12/25/19 09 SAUL LUONG Vaccines Viral Polio, Inactivated (Salk) Vaccines Viral Polio, Inactivated (Salk) 37222 12/25/19 09 SAUL LUONG Meningococcal Polysacch Diphtheria Toxoid Conjugate Vaccine 12/25/19 09 SAUL LUONG Immunization Administration Each Additional Vaccine 12/25/19 09 SAUL LUONG Hepatitis A Vaccine Adult Dosage (Intramuscular Use) Hepatitis A Vaccine Adult Dosage (Intramuscular Use) 66378 12/25/19 09 SAUL LUONG Immunization Administration One Vaccine Immunization Administration One Vaccine 97878 12/25/19 09 SAUL LUONG Audiometry Group Testing Audiometry Group Testing 14362 12/23/[address].-Supervised Group Educational Services 12/23/[address] Services Analysis Of Computerized Data Special Tello Services Analysis Of Computerized Data 10792 12/23/19 09 ILEANA EDMONDS Ear mold/insert, not disposable, any type 12/23/[address] [facility] Ear Protector Attenuation Measurements Ear Protector Attenuation Measurements 48734 12/23/[address] [facility] Threshold Audiogram (Pure Tone) Threshold Audiogram (Pure Tone) 73876 12/23/[address] [facility] Skin Test Anergy Tuberculin Intradermal Skin Test Anergy Tuberculin Intradermal 01510 12/23/[address] [facility] Immunization Administration One Vaccine Immunization Administration One Vaccine 71763 12/23/[address] [facility] Social History Combined list of available smoking, tobacco, and other social history from Department of Defense and Veterans Affairs facilities. Social History Type Response Date Comment [facility] e This section is an empty social history section. DoD
--- NOTE | 2025-01-01 13:30 | MM_ITS ---
PROCEDURE INFORMATION: Exam: Bilateral Diagnostic Breast Tomosynthesis Exam date and time: 01/01/2025 1:31 PM Clinical indication: Bilateral breast palpable lumps TECHNIQUE: Imaging protocol: Bilateral Diagnostic tomosynthesis and 2D mammography including computer-aided detection (CAD) when performed. Unilateral or bilateral exam. COMPARISON: No relevant prior studies available. FINDINGS: MAMMOGRAPHY: Breast composition: There are scattered areas of fibroglandular density. Breast mammogram findings: There is no stellate mass, architectural distortion or suspicious microcalcifications in either breast to suggest malignancy. No skin thickening or axillary adenopathy. Bilateral upper outer quadrant skin markers were placed over bilateral palpable abnormalities. No suspicious findings on routine or spot compression views IMPRESSION: Patient to return for targeted bilateral breast ultrasound for further evaluation of bilateral palpable abnormalities ASSESSMENT: BI-RADS Category 0: Incomplete- Need Additional Imaging Evaluation
== END 2025-01-01 23:59 | disposition home or self-care (01) ==
LOC: RAD 13:16
PROVIDERS: PCP Nurse Practitioner Family; Visit Provider Obstetrics & Gynecology
DX: N63.0 Unspecified lump in unspecified breast (principal)
CPT/HCPCS: 77062; 77066; G0279

== ENCOUNTER 2025-01-07 08:45 | Outpatient (CLI) | payer OTHER, SELFPAY ==
--- OUTSIDE RECORDS SUMMARY | 2025-01-07 08:48 | XMS_ITS | Continuity of Care Document ---
Author Name [facility] Organization [facility] Care Team Providers Care Emergency Technician Name Role Phone [facility] Unavailable Unavailable [...] EXAM WITH CERVICAL PAP SMEAR Inactive Condition [facility] LEG STRAIN POSTERIOR TIBIALIS Inactive Condition DoD [...] for: ears / hearing exam Active Condition [facility] ASSESSMENT OF PATIENT CONDITION WORK-RELATED Active Condition [facility] visit for: screening exam pulmonary tuberculosis Active [...] Site Reaction Lot Number CVX Code Drug Calculator Operator Status Comments Source influenza virus vaccine, live, attenuated, for intranasal use 1 2010 [id number] [employer] (MED) complet ed influenza virus vaccine, [...] diphtheria toxoid conjugate vaccine (MCV4P) 1 2008 [id number] Sanofi Pasteur (PMC) complet ed meningoco ccal polysacch aride (groups A, C, Y and W-135) diphtheri a toxoid conjugate vaccine (MCV4P) DoD tetanus toxoid, reduced diphtheria toxoid, and acellular pertu is vaccine, adsorbed 1 2008 [id number] [employer] (SKB) complet ed tetanus [...] [employer](BRITTNI C Post Immunizat ion) OUTPATIENT [id number] IET EDWINA POTTS 12/22 Released w/o Limitations [employer](M AHC Post Immuniz ation) [employer](IEP Hearing Conservat ion) OUTPATIENT [id number] ILEANA EDMONDS 12/22 Released w/o Limitations [employer](I EP Hearing Conserv ation) [employer](IEP Primary Care) OUTPATIENT [id number] YEFRI CAT P 12/23 Released with Work/Duty Limitations [employer](I EP Primary Care) [employer](BRITTNI C Post Immunizat ion) OUTPATIENT [id number] IET IMMUNIZ ATIONS SAUL LUONG 12/24 Released w/o Limitations [employer](M AHC Post Immuniz ation) [employer](PES Optometry -Trainee) OUTPATIENT [id number] ERWIN BESTCHI Peña 12/27 Released w/o Limitations [employer](P ES Optomet ry-Cory nee) [employer](TMC Ambulator y) OUTPATIENT [id number] JAZLYN HAMEED 01/04 Immediate Referral [employer](T MC Ambulat ory) [employer](BRITTNI C Occupatio nal Therapy) OUTPATIENT [id number] walk in eval HARRISON SOLO 01/04 Released w/o Limitations [employer](M AHC Occupat ional Therapy ) [employer](TMC Ambulator y) OUTPATIENT [id number] HARRISON WERNER 01/08 Released w/o Limitations [employer](T MC Ambulat ory) [employer](TMC Ambulator y) OUTPATIENT [id number] DAT SILVA 01/17 Released with Work/Duty Limitations [employer](T MC Ambulat ory) [employer](BRITTNI C Occupatio nal Therapy) OUTPATIENT [id number] walk in f/u HARRISON SOLO 01/17 Released w/o Limitations [employer](M AHC Occupat ional Therapy ) [employer](BRITTNI C Occupatio nal Therapy) OUTPATIENT [id number] f/u HARRISON SOLO 01/26 Released w/o Limitations [employer](M AHC Occupat ional Therapy ) [employer](TMC Ambulator y) OUTPATIENT [id number] TJ SOTO 02/08 Released with Work/Duty Limitations [employer](T MC Ambulat ory) [employer](TMC Ambulator y) OUTPATIENT [id number] TANJA DAHL *CHANTEL* 02/09 Released with Work/Duty Limitations [employer](T MC Ambulat ory) [employer] 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 [facility] OUTPATIENT [id number] RENATE FERGUSON 02/16 Released with Work/Duty Limitations [employer](F [facility] [employer] [place] [facility]([place]col [place]gy [place]) OUTPATIENT [id number] ait MARYCRUZ Figueroa (ATTENDING AMBULATORY CARE) 03/15 Released w/o Limitations [facility](Orthopedic Physician ecology [place]) [facility](Primary Care Clinic-TM C 1 [place]) OUTPATIENT [id number] left knee pain RENZO GOODWIN 04/12 Released with Work/Duty Limitations [facility] [place] [facility]-[place] OUTPATIENT [id number] self care ORALIA NIEVES 04/12 Released w/o Limitations [facility] [place] [facility]- C 1 [place]) OUTPATIENT [id number] follow up left knee RENZO GOODWIN 04/18 Released with Work/Duty Limitations [facility] [place] [facility](Primary [facility]- C 1 [place]) TELE CONSULT [id number] on-call CALVIN Hernandez 04/29 [facility] [place] [facility](Primary Care Clinic-TM C 1 [place] OUTPATIENT [id number] self care ERIC BULL 04/29 Released w/o Limitations [facility] [place]) [facility] OUTPATIENT [id number] sore throat JOHANA LAU 11/30 [facility]ased with Work/Duty Limitations [facility] Primary [facility]) Procedures Combined list of: 1) Procedures from Department of Veterans Affairs facilities going back up to [facility] 18 months, not all VA non-surgical procedures are included; 2) All procedures from the Department of Defense facilities. Procedure Procedure Type Code Date Perfomer Comments Sourc e Screening papanicolaou smear; obtaining, preparing and conveyance of cervical or vaginal smear to laboratory 03/15/20 09 MARYCRUZ VILLALBA (ATTENDING AMBULATORY CARE) Mercedes Tello-Supervised Services Provision Of Educational Supplies -Supervised Services Provision Of Educational Supplies 56793 03/15/20 09 MARYCRUZ VILLALBA (ATTENDING AMBULATORY CARE) Mercedes Human Papilloma Virus Vaccine, Quadrivalent Human Papilloma Virus Vaccine, Quadrivalent 62919 03/15/20 09 MARYCRUZ VILLALBA (ATTENDING AMBULATORY CARE) Mercedes Immunization Administration One Vaccine Immunization Administration One Vaccine 32464 03/15/20 09 MARYCRUZ VILLALBA (ATTENDING AMBULATORY CARE) Mercedes Crutches, underarm, other than wood, adjustable or fixed, pair, with pads, tips and handgrips 02/17/20 09 RENATE FERGUSON Athletic Training Evaluation Athletic Training Evaluation 08375 02/17/20 09 RENATE FERGUSON Parenteral Fluids IV Infusion 02/10/20 09 TANJA DAHL *PA* 1000cc lactated ringers [facility] IV Infusion For Hydration 31 Minutes To 1 Hour IV Infusion For Hydration 31 Minutes To 1 Hour 12458 02/09/20 09 TJ SOTO Infusion, normal saline solution , 1000 cc 02/09/20 09 TJ SOTO Occupational Therapy Re-Evaluation Occupational Therapy Re-Evaluation 10713 01/27/20 09 HARRISON SOLO Occupational Therapy Re-Evaluation Occupational Therapy Re-Evaluation 64015 01/18/20 09 HARRISON SOLO Modalities Cryotherapy Cold Packs Modalities Cryotherapy Cold Packs 20678 01/09/20 09 HARRISON WERNER Hand-finger orthosis, without joints, may include soft interface, straps, prefabricated, includes fitting and adjustment 01/05/20 09 HARRISON SOLO Occupational Therapy Evaluation Occupational Therapy Evaluation 92105 01/05/20 09 HARRISON SOLO Ophthalmological New Patient Start Intermediate Level Care Ophthalmological New Patient Start Intermediate Level Care 94405 12/28/19 09 ARNULFO LOGAN [employer] Fitting Monofocals (Not For Aphakia) [employer] Fitting Monofocals (Not For Aphakia) 99217 12/28/19 09 ARNULFO LOGAN Determination Of Refractive State Determination Of Refractive State 02884 12/28/19 09 ARNULFO LOGAN [facility] Vaccines Viral Varicella (Active) Vaccines Viral Varicella (Active) 33915 12/25/[address] [facility] Tdap Vaccine Tdap Vaccine 00987 12/25/[address] [facility] Vaccines Viral Polio, Inactivated (Salk) Vaccines Viral Polio, Inactivated (Salk) 64673 12/25/[address] [facility] Meningococcal Polysacch Diphtheria Toxoid Conjugate Vaccine 12/25/[address] [facility] Immunization Administration Each Additional Vaccine 12/25/19 09 KETCHUM [facility] Hepatitis A Vaccine Adult Dosage (Intramuscular Use) Hepatitis A Vaccine Adult Dosage (Intramuscular Use) 19290 12/25/[address] [facility] Immunization Administration One Vaccine Immunization Administration One Vaccine 64402 12/25/19 09 TANNER [facility] Audiometry Group Testing Audiometry Group Testing 37123 12/23/[address].-Supervised Group Educational Services 12/23/[address] Services Analysis Of Computerized Data Special Tello Services Analysis Of Computerized Data 88757 12/23/19 09 ILEANA EDMONDS Ear mold/insert, not disposable, any type 12/23/19 09 ILEANA EDMONDS Ear Protector Attenuation Measurements Ear Protector Attenuation Measurements 61343 12/23/19 09 ILEANA EDMONDS Threshold Audiogram (Pure Tone) Threshold Audiogram (Pure Tone) 88831 12/23/19 09 ILEANA EDMONDS Skin Test Anergy Tuberculin Intradermal Skin Test Anergy Tuberculin Intradermal 95169 12/23/19 09 PRADEEP ORELLANA Immunization Administration One Vaccine Immunization Administration One Vaccine 25620 12/23/19 09 PRADEEP ORELLANA EDUCATIONAL SUPPLIES, SUCH BOOKS, TAPES, AND PAMPHLETS, FOR THE PATIENT'S EDUCATION AT COST TO PHYSICIAN OR OTHER QUALIFIED HEALTH ELECTRICIAN THIRD 03/15/20 [facility] CRUTCHES UNDERARM, OTHER THAN WOOD, ADJUSTABLE OR FIXED, PAIR, WITH PADS, TIPS AND HANDGRIPS 02/17/20 09 [facility] THERAPEUTIC, PROPHYLACTIC, OR DIAGNOSTIC INJECTION (SPECIFY SUBSTANCE OR DRUG); INTRAVENOUS PUSH, SINGLE OR INITIAL SUBSTANCE/DRUG 02/10/20 [facility] INFUSION, NORMAL SALINE SOLUTION , 1000 CC 02/09/20 [facility] OCCUPATIONAL THERAPY RE-EVALUATION 01/27/20 [facility] OCCUPATIONAL THERAPY RE-EVALUATION 01/18/20 [facility] OCCUPATIONAL THERAPY EVALUATION 01/05/20 [facility] DETERMINATION OF REFRACTIVE STATE 12/28/19 [facility] TETANUS, DIPHTHERIA TOXOIDS AND ACELLULAR PERTUSSIS VACCINE (TDAP), WHEN ADMINISTERED TO INDIVIDUALS 7 YEARS OR OLDER, FOR INTRAMUSCULAR USE 12/25/19 [facility] ANALYSIS OF CLINICAL DATA STORED IN COMPUTERS (EG, ECGS, BLOOD PRESSURES, HEMATOLOGIC DATA) 12/23/19 09 [facility] SKIN TEST; TUBERCULOSIS, INTRADERMAL 12/23/19 [facility] Social History Combined list of available smoking, tobacco, and other social history from Department of Defense and Veterans Affairs facilities. Social History Type Response Date Comment Sour e This section is an empty social history section. DoD
--- NOTE | 2025-01-07 09:00 | US_ITS ---
PROCEDURE INFORMATION: Exam: US Left Breast, Complete US Right Breast, Complete Exam date and time: 01/07/2025 8:55 AM Age: 39 years old Clinical indication: Palpable abnormalities in both upper outer quadrants TECHNIQUE: Imaging protocol: Complete ultrasound of all four quadrants of the left breast and the retroareolar regions, including ultrasound of the axilla when performed. Complete ultrasound of all four quadrants of the right breast and the retroareolar regions, including ultrasound of the axilla when performed. COMPARISON: US BREAST LT COMPLETE 11/21/2022 10:18 AM FINDINGS: ULTRASOUND: Breast ultrasound findings: Sonographic images of both breasts including the retroareolar regions, all 4 quadrants and the axilla do not demonstrate any solid or cystic masses. This is with particular attention both upper outer quadrants were palpable abnormalities were identified. No architectural distortion or acoustical shadowing. No skin thickening or axillary adenopathy. IMPRESSION: Palpable abnormalities in both breasts correspond both mammographically and sonographically to normal fibroglandular structures. There is no mammographic evidence of malignancy. Further evaluation of a palpable abnormality should be based on clinical grounds regardless of radiographic findings or lack thereof. Annual bilateral mammographic screening is recommended to commence at the age of 40 unless otherwise clinically indicated. ASSESSMENT: BI-RADS Category 0: Incomplete- Need Additional Imaging Evaluation
== END 2025-01-07 23:59 | disposition home or self-care (01) ==
LOC: RAD 08:46
PROVIDERS: PCP Nurse Practitioner Family; Visit Provider Obstetrics & Gynecology
DX: N63.21 Unspecified lump in the left breast, upper outer quadrant (principal); N63.11 Unspecified lump in the right breast, upper outer quadrant
CPT/HCPCS: 76641